=== PATIENT | female | born 1960 | race Caucasian/White ===

== ENCOUNTER → 2018-09-12 | Outpatient (CLI) | payer MEDICARE ==
--- NOTE | 2018-09-12 09:49 | RADIOLOGY REPORT (SQ) ---
EXAM DESCRIPTION: U/S RETROPERITON (RENAL/AORTA) COMPLETED DATE/TIME: 09/12/2018 9:07 am REASON FOR STUDY: AAA W/O RUPTURE (I71.4), CHF (I50.30) I50.30 UNSPECIFIED DIASTOLIC (CONGESTIVE) H EART FAILURE I71.4 ABDOMINAL AORTIC ANEURYSM, WITHOUT RUPTURE COMPARISON: None. TECHNIQUE: Static and dynamic grayscale images acquired of the aorta and stored on PACs. Selected co mary Doppler and spectral images recorded. LIMITATIONS: None. FINDINGS: AORTIC CALIBER MAXIMAL PROXIMAL: 3.2 x 3.3 cm. MID: 2.3 x 2.7 cm. DISTAL: 3.7 x 3.5 cm. This area measures 5.0 cm in length. ILIAC DIAMETER RIGHT: Not visualized secondary to overlying bowel gas. LEFT: Not visualized secondary to overlying bowel gas. OTHER: Scattered aortic atherosclerosis. IMPRESSION: Dilation of the infrarenal abdominal aorta measuring up to 3.7 cm. See recommendations as below. COMMENT: Aortic aneurysm imaging followup: 3.5-3.9 cm Every 12 months *Based upon the Society for Vascular Surgery Guidelines: J Vasc Surg. 2009 Oct;50(4 Suppl):S2-49 *For aortas of maximum diameter of 2.6-2.9 cm meeting the criteria for AAA (?1.5 x proximal normal se gment) TECHNICAL DOCUMENTATION: JOB ID: [id number] [employer]- All Rights Reserved Reading location - IP/workstation name: [email or web address]
--- NOTE | 2018-09-12 21:06 | XCELERA REPORT ---
[address] [address] Transthoracic Echocardiogram Report Name: NICO AVILA Age: 58 yrs Gender: Female : 1960 Patient Status: Outpatient Patient Location: RAD Study Date: 09/12/2018 10:05 AM Height: 64 in Weight: 155 lb BSA: 1.8 m2 Procedure: A complete two-dimensional transthoracic echocardiogram was performed (2D, M-mode, spectral and color flow Doppler). The study was technically difficult with many images being suboptimal in quality. Reason For Study: CHF/AAA Ordering Physician: NIC GOMEZ Performed By: Iliana Amaro Interpretation Summary The left ventricular ejection fraction is normal. LV diastolic function could not be adequately assessed. There is mild concentric left ventricular hypertrophy. The left ventricle is grossly normal size. Wall motion cannot be accurately commented on, but no definite regional wall motion abnormalities noted. The right ventricular systolic function is normal. The left atrial size is normal. The right atrium is normal in size There is a trace amount of mitral regurgitation There is no mitral valve stenosis. No aortic regurgitation is present. There is no aortic valve stenosis There is a trace or physiologic amount of tricuspid regurgitation Tricuspid regurgitation jet envelope not well defined to measure RV systolic pressure accurately. The aortic root is not well visualized. The inferior vena cava appeared normal and decreased > 50% with respiration (RAP 5-10 mmHg) There is no pericardial effusion. MMode/2D Measurements & Calculations RVDd: 3.2 cm LVIDd: 4.4 cm FS: 29.9 % Ao root diam: 3.1 cm IVSd: 1.0 cm LVIDs: 3.1 cm EDV(Teich): 89.1 ml Ao root area: 7.4 cm2 LVPWd: 1.3 cm ESV(Teich): 38.1 ml EF(Teich): 57.2 % Doppler Measurements & Calculations MV E max rafa: MV dec slope: Ao V2 max: LV V1 max P.0 cm/sec 266.4 cm/sec2 140.3 cm/sec 6.8 mmHg MV A max rafa: MV dec time: 0.19 secAo max PG: LV V1 max: 63.6 cm/sec 7.9 mmHg 130.1 cm/sec MV E/A: 0.79 PA V2 max: 106.2 cm/sec PA max P.5 mmHg Left Ventricle The left ventricle is grossly normal size. There is mild concentric left ventricular hypertrophy. The left ventricular ejection fraction is normal. LV diastolic function could not be adequately assessed. Wall motion cannot be accurately commented on, but no definite regional wall motion abnormalities noted. Right Ventricle The right ventricle is grossly normal size. There is normal right ventricular wall thickness. The right ventricular systolic function is normal. Atria The right atrium is normal in size. The left atrial size is normal. Interarterial septum not well visualized and not well dopplered. Cannot comment on ASD/PFO presence. Mitral Valve The mitral valve is grossly normal. There is no mitral valve stenosis. There is a trace amount of mitral regurgitation. Aortic Valve The aortic valve is grossly normal. There is no aortic valve stenosis. No aortic regurgitation is present. Tricuspid Valve The tricuspid valve is not well visualized secondary to technical limitations. There is no tricuspid stenosis. There is a trace or physiologic amount of tricuspid regurgitation. Tricuspid regurgitation jet envelope not well defined to measure RV systolic pressure accurately. Pulmonic Valve The pulmonic valve is not well visualized. Great Vessels The aortic root is not well visualized. The inferior vena cava appeared normal and decreased > 50% with respiration (RAP 5-10 mmHg). Effusions There is no pericardial effusion. : NIC GOMEZ > Haydee Jones
== END ==
LOC: RAD 08:23
PROVIDERS: ATTEND Physician Assistant
DX: I50.30 Unspecified diastolic (congestive) heart failure (principal); I71.4 Abdominal aortic aneurysm, without rupture
CPT/HCPCS: 76770; 93306

== ENCOUNTER 2019-01-01 06:02 | Day surgery (SDC) | payer MEDICARE ==
--- NOTE | 2018-12-31 11:29 | EKG REPORT ---
SEVERITY:- BORDERLINE ECG - SINUS RHYTHM BORDERLINE T WAVE ABNORMALITIES : Confirmed by: Isi Wakefield MD 31-Dec-2018 11:27:55
[2018-12-31 11:39] LABS: HEMATOCRIT 40.3 % (36.0-47.0); MEAN CORPUSCULAR HEMOGLOBIN 33.5 pg (27.0-33.4); MEAN CORPUSCULAR HGB CONC 34.7 g/dL (32.0-36.0); MEAN CORPUSCULAR VOLUME 97 fl (80-97); PLATELET COUNT 243 10^3/uL (150-450); RED BLOOD COUNT 4.17 10^6/uL (3.72-5.28); RED CELL DISTRIBUTION WIDTH 14.6 % (11.5-14.0); WHITE BLOOD COUNT 6.9 10^3/uL (4.0-10.5)
[2018-12-31 11:48] LABS: APPEARANCE,URINE CLEAR; BILIRUBIN,URINE NEGATIVE (NEGATIVE); COLOR,URINE YELLOW; GLUCOSE, URINE NEGATIVE (NEGATIVE); KETONES,URINE NEGATIVE (NEGATIVE); LEUKOCYTE ESTERASE,URINE NEGATIVE (NEGATIVE); NITRITE,URINE NEGATIVE (NEGATIVE); PROTEIN,URINE 30 mg/dL (NEGATIVE); URINE SPECIFIC GRAVITY 1.005; UROBILINOGEN,URINE NEGATIVE mg/dL (<2.0)
[2018-12-31 11:55] LABS: INTERNATIONAL RATION (INR) 0.93; PARTIAL THROMBOPLASTIN TIME 31.4 SEC (23.5-35.8); PROTHROMBIN TIME 12.9 SEC (11.4-15.4)
[2018-12-31 12:04] LABS: ANION GAP 7 (5-19); BLOOD UREA NITROGEN 12 mg/dL (7-20); CALCIUM 9.9 mg/dL (8.4-10.2); CARBON DIOXIDE 33 mmol/L (22-30); CHLORIDE 97 mmol/L (98-107); GLUCOSE 111 mg/dL (75-110); POTASSIUM 4.4 mmol/L (3.6-5.0); SODIUM 136.6 mmol/L (137-145)
--- NOTE | 2018-12-31 12:45 | RADIOLOGY REPORT (SQ) ---
EXAM DESCRIPTION: CHEST PA/LATERAL COMPLETED DATE/TIME: 12/31/2018 11:20 am REASON FOR STUDY: PRE-OP COMPARISON: 09/26/2013 TECHNIQUE: AP and lateral views of the chest NUMBER OF VIEWS: 2 LIMITATIONS: None. FINDINGS: LUNGS AND PLEURA: No pneumothorax. No consolidation or pleural effusion. Similar chronic basilar scarring -interstitial markings. MEDIASTINUM AND HILAR STRUCTURES: Stable. HEART AND VASCULAR STRUCTURES: Stable. BONES: No acute findings. HARDWARE: Thoracic intraspinal stimulator. OTHER: No other significant finding. IMPRESSION: NO ACUTE FINDINGS. TECHNICAL DOCUMENTATION: JOB ID: [id number] [place]-72 2010 [employer])- All Rights Reserved Reading location - IP/workstation name: [email or web address]
[~2019-01-01 06:02] MED LIST: CEFAZOLIN 1 GM/D5W RTU 1 GM/50 ML RTUPB IV ONE; CEFAZOLIN 1 GM/D5W RTU 1 GM/50 ML RTUPB IV PRN; LACTATED RINGERS 1000 ML IV PRN; LIDOCAINE 0.5% INJ-PF (5 MG/ML) 50 ML SDV SUBCUT PRN
[2019-01-01] MEDS ORDERED: ALBUTEROL SULFATE 0.083% NEB 2.5 MG/3 ML AMPUL NEB ONE (06:41)
[2019-01-01] MEDS ORDERED: FENTANYL CITRATE INJ/PF 100 MCG/2 ML AMPUL ONE ×3 (07:11→08:51)
[2019-01-01] MEDS ORDERED: KETAMINE HCL INJ 500 MG/10 ML VIAL ONE (07:11)
[2019-01-01] MEDS ORDERED: PROPOFOL INJ 200 MG/20 ML VIAL IV ONE (07:12)
[2019-01-01] MEDS ORDERED: MIDAZOLAM 2 MG/2 ML INJ ONE ×2 (07:12→07:19)
[2019-01-01] MEDS ORDERED: LIDOCAINE 1% INJ-PF (10 MG/ML) 30 ML SDV ONE (07:41)
[2019-01-01] MEDS ORDERED: SODIUM BICARBONATE 4.2% INJ (2.5 MEQ/5 ML) VIAL ONE (07:41)
[2019-01-01] MEDS ORDERED: BUPIVACAINE HCL 0.25% /EPINEPHRINE INJ/PF 30 ML SDV ONE (07:41)
[2019-01-01] MEDS ORDERED: FENTANYL CITRATE INJ/PF 100 MCG/2 ML AMPUL IV PRN ×3 (08:27)
[2019-01-01] MEDS ORDERED: DIPHENHYDRAMINE HCL 50 MG/ML VIAL IV PRN (08:27)
[2019-01-01] MEDS ORDERED: CEFAZOLIN INJ 1 GM VIAL ONE (08:37)
--- NOTE | 2019-01-01 09:09 | OPERATIVE REPORT E ---
Operative Report NAME: NICO AVILA : 1960 AGE: 58Y DATE OF SURGERY: 01/01/2019 ROOM: PREOPERATIVE DIAGNOSIS: Nonfunctioning spinal cord stimulating system noted to the panel electrode implanted on the right side as the patient has a dual system with a battery on the left as well which is functioning fine. POSTOPERATIVE DIAGNOSIS: Nonfunctioning spinal cord stimulating system noted to the panel electrode implanted on the right side as the patient has a dual system with a battery on the left as well which is functioning fine. SURGICAL PROCEDURE: Removal and replacement of spinal cord stimulator battery. SURGEON: JUICE TORRES M.D. ANESTHESIA: MAC. BLOOD LOSS: Minimal. SPECIMENS REMOVED: None. Old battery discarded. COMPLICATIONS: None. INDICATIONS: End-of-life battery. PROCEDURE NOTE: After obtaining informed consent advising the patient of the risks and benefits, including serious neurological injury, bleeding, infection, allergic reaction, and nonfunctioning of the system, damage to the existing system, allergic reaction, and , she was taken to the operating room and placed comfortably in the prone position. MAC anesthesia was administered and monitors were applied. She was then prepped with chlorhexidine with appropriate drying time of 3 minutes. She was then draped in the customary fashion. The surgical site had been marked over the right side. Local anesthetic 1% lidocaine with bicarb was applied using a 27-gauge needle over the existing scar from the prior implant. Bupivacaine was then instilled as well. Sharp and blunt dissection was performed to deliver the pulse generator without difficulty. The capsule was incised slightly to facilitate placement of the new pulse generator. The system was disconnected from the existing leads. The leads were cleaned and connected to the new pulse generator. Impedance connectivity was checked and was all satisfactory. All hex nuts were secured. The wound was then copiously irrigated with Betadine-containing irrigation solution. The battery was placed into the pocket in the same orientation as its prior system. The capsule was then closed with interrupted inverted vertical mattress 2-0 Vicryl. The subcutaneous tissue was then closed with the same using 3-0 Vicryl. The skin was then taped with Dermabond tape and sealed with cement followed by Telfa and Tegaderm. The system was checked with connectivity and it was satisfactory. She was then taken to the PACU for further postoperative care. DICTATING PHYSICIAN: JUICE TORRES M.D. [id number] PHY#: [id number] ID: [id number] JOB#: [id number] ACCT: [id number] cc:JUICE TORRES M.D. >
[2019-01-01] MEDS ORDERED: ONDANSETRON HCL INJ/PF 4 MG/2 ML SDV IV PRN (10:29)
[2019-01-01] MEDS ORDERED: HYDROMORPHONE HCL 2 MG TABLET PO PRN (10:29)
[2019-01-01 11:17] VITALS: BP 153/89
[2019-01-01] MEDS ORDERED: ONDANSETRON HCL INJ/PF 4 MG/2 ML SDV ONE (13:07)
== END 2019-01-01 10:40 | disposition home or self-care (01) ==
LOC: OROUT 06:02
PROVIDERS: ATTEND Pain Medicine Interventional Pain Medicine
DX: G89.4 Chronic pain syndrome (principal); M54.17 Radiculopathy, lumbosacral region; M96.1 Postlaminectomy syndrome, not elsewhere classified; F17.210 Nicotine dependence, cigarettes, uncomplicated; Z79.899 Other long term (current) drug therapy; G56.00 Carpal tunnel syndrome, unspecified upper limb; F45.42 Pain disorder with related psychological factors; M60.89 Other myositis, multiple sites
CPT/HCPCS: 62361; 93005; 36415; 85027; 85610; 85730; 80048; 81001; 71046; 93010; 00300; J2250; J3490 ×4; J0690 ×2; J3010; J2405; J2704; A9270; 300

== ENCOUNTER 2019-10-03 21:13 | Inpatient (IN) | payer MEDICARE ==
[2019-10-03 22:43] LABS: INTERNATIONAL RATION (INR) 0.97; PROTHROMBIN TIME 12.9 SEC (11.4-15.4)
[2019-10-03 22:44] LABS: ABSOLUTE BASOPHILS # (AUTO) 0.1 10^3/uL (0.0-0.2); ABSOLUTE EOSINOPHILS # (AUTO) 0.1 10^3/uL (0.0-0.6); ABSOLUTE LYMPHOCYTES (AUTO) 1.8 10^3/uL (0.5-4.7); ABSOLUTE MONOCYTES (AUTO) 1.3 10^3/uL (0.1-1.4); ABSOLUTE NEUT (AUTO) 5.4 10^3/uL (1.7-8.2); EOSINOPHILS % (AUTO) 1.6 % (0-6); HEMATOCRIT 38.7 % (36.0-47.0); HEMOGLOBIN 13.6 g/dL (12.0-15.5); LYMPHOCYTES % (AUTO) 20.6 % (13-45); MEAN CORPUSCULAR HEMOGLOBIN 34.3 pg (27.0-33.4); MEAN CORPUSCULAR VOLUME 98 fl (80-97); MONOCYTES % (AUTO) 15.2 % (3-13); PLATELET COUNT 314 10^3/uL (150-450); RED BLOOD COUNT 3.96 10^6/uL (3.72-5.28); RED CELL DISTRIBUTION WIDTH 13.2 % (11.5-14.0); SEGMENTED NEUTROPHILS % (AUTO) 61.6 % (42-78); TOTAL CELLS COUNTED % (AUTO) 100 %; WHITE BLOOD COUNT 8.8 10^3/uL (4.0-10.5)
[2019-10-03 22:49] LABS: ALBUMIN 4.3 g/dL (3.5-5.0); ALKALINE PHOSPHATASE 118 U/L (38-126); ANION GAP 13 (5-19); ASPARTATE AMINO TRANSFERASE 73 U/L (14-36); BILIRUBIN,DIRECT 0.4 mg/dL (0.0-0.4); BILIRUBIN,TOTAL 0.9 mg/dL (0.2-1.3); BLOOD UREA NITROGEN 23 mg/dL (7-20); CALCIUM 9.7 mg/dL (8.4-10.2); CARBON DIOXIDE 27 mmol/L (22-30); CHLORIDE 86 mmol/L (98-107); GLUCOSE 88 mg/dL (75-110); POTASSIUM 4.2 mmol/L (3.6-5.0); TOTAL PROTEIN 7.8 g/dL (6.3-8.2)
--- NOTE | 2019-10-03 22:53 | ER Document Report ---
ED General - General Chief Complaint: Shortness Of Breath Stated Complaint: SHORTNESS OF BREATH,COUGH,PNEUMONIA Time Seen by Provider: 10/03/19 22:51 Primary Care Provider: NIC KING PA-C [Primary Care Provider] - Follow up as needed Notes: 59 year old white female with cc of 1 week history of dyspnea/SOB, productive clear phlegm cough and congestion. Patient was seen by clinic today and placed on Augmentin and Zpak but by 1800 began to have tachypnea and increased dyspnea. She was told she had braxton bibasilar pneumonia with left serous OM. She called her daughter EMS worker who advised "she can come to ED if she wanted to get IV medicines.". By time of arrival @ 2124, pt had 32 BPM with sats 91 and by 2200 had 20 BPM with 94 sats TRAVEL OUTSIDE OF THE [place] IN LAST 30 DAYS: No - Related Data Allergies/Adverse Reactions: adhesive tape [Adhesive Tape] Allergy (Verified 09/26/13 10:48) Past Medical History - Social History Smoking Status: Current Every Day Smoker Family History: Reviewed & Not Pertinent Patient has suicidal ideation: No Patient has homicidal ideation: No - Past Medical History Cardiac Medical History: Reports: Hx Hypertension Denies: Hx Coronary Artery Disease, Hx Heart Attack Pulmonary Medical History: Denies: Hx Asthma, Hx Bronchitis, Hx COPD, Hx Pneumonia Neurological Medical History: Denies: Hx Cerebrovascular Accident, Hx Seizures Musculoskeletal Medical History: Denies Hx Arthritis - Immunizations Hx Diphtheria, Pertussis, Tetanus Vaccination: No Physical Exam - Vital signs Vitals: Pulse Ox 94 10/03/19 21:17 Interpretation: Tachycardic, Hypoxic, Tachypneic - General General appearance: Alert - HEENT Head: Normocephalic Eyes: Normal Conjunctiva: Normal Cornea: Normal Extraocular movements intact: Yes Eyelashes: Normal Pupils: PERRL Tympanic membrane: Serous effusion - L>R Sinus: Normal Nasal: Clear rhinorrhea Mouth/Lips: Normal Mucous membranes: Normal Pharynx: Normal Neck: Normal - Respiratory Respiratory status: No respiratory distress Chest status: Nontender Breath sounds: Nonproductive cough, Wheezing Chest palpation: Normal - Cardiovascular Rhythm: Regular Heart sounds: Normal auscultation Murmur: No Friction rub: No Oleg's crunch: No - Abdominal Inspection: Normal Distension: No distension Bowel sounds: Normal Tenderness: Nontender Organomegaly: No organomegaly - Back Back: Normal - Extremities General upper extremity: Normal inspection General lower extremity: Normal inspection - Neurological Neuro grossly intact: Yes Cognition: Normal Orientation: AAOx4 [place] Coma Scale Eye Opening: Spontaneous Nelly Coma Scale Verbal: Oriented [place] Coma Scale Motor: Obeys Commands [place] Coma Scale Total: 15 Speech: Normal Cranial nerves: Normal Cerebellar coordination: Normal Motor strength normal: LUE, RUE, LLE, RLE - Psychological Associated symptoms: Normal affect - Skin Skin Temperature: Warm Skin Moisture: Dry Course - Vital Signs Vital signs: Temp Pulse Resp BP Pulse Ox 98.6 F 13 135/83 H 98 10/03/19 21:25 10/04/19 00:31 10/04/19 00:31 10/04/19 00:31 - Laboratory Result Diagrams: 10/03/19 21:30 10/03/19 21:30 Laboratory results interpreted by me: 10/03/19 10/03/19 21:30 21:30 MCV 98 H MCH 34.3 H [place] % (Auto) 15.2 H Sodium 125.8 L Chloride 86 L BUN 23 H Creatinine 1.77 H Est GFR ( Amer) 36 L Est GFR (MDRD) Non-Af 29 L AST 73 H ALT 43 H - Diagnostic Test Radiology reviewed: Reports reviewed Radiology results interpreted by me: 10/03/19 23:20 COPD on chest x-ray with stim wires on thorax and lungs are clear per radiology Critical Care Note - Critical Care Note Total time excluding time spent on procedures (mins): 90 Discharge - Discharge Clinical Impression: COPD with exacerbation, Bronchitis, Hyponatremia Condition: Good Disposition: HOME, SELF-CARE Additional Instructions: Follow-up with personal doctor return to ER as needed take medicines as directed encourage fluids Prescriptions: Codeine Phosphate/Guaifenesin [Codeine-Guaifen 10-100 mg/5 ml] 5 ml PO TID #120 ml Dexamethasone [Decadron 4 Mg Tablet] 4 mg PO BID #8 tablet Levofloxacin [Levaquin 500 mg Tablet] 500 mg PO DAILY #10 tablet Referrals: NIC KING PA-C [Primary Care Provider] - Follow up as needed
[2019-10-03] MEDS ORDERED: DEXAMETHASONE SOD PHOS INJ 10 MG/1 ML VIAL IV ONE (23:03)
--- NOTE | 2019-10-03 23:05 | RADIOLOGY REPORT (SQ) ---
EXAM DESCRIPTION: XR CHEST 1 VIEW COMPLETED DATE/TME: 10/03/2019 22:21 CLINICAL HISTORY: 59 years, Female, SOB COMPARISON: 12/31/2018 chest NUMBER OF VIEWS: 1 TECHNIQUE: Portable chest LIMITATIONS: None. FINDINGS: Heart size is stable. Osteopenia. COPD. Stimulating wires project over the thoracic spine. No pneumothorax. Lungs are clear IMPRESSION: COPD. No acute cardiopulmonary process copyright 2010 [employer]- All Rights Reserved
[2019-10-03] MEDS ORDERED: NORMAL SALINE 1000 ML 1,000 ML IV ONE (23:22)
[2019-10-04] MEDS ORDERED: HYDROMORPHONE HCL INJ/PF 2 MG/ML AMPULE IV ONE ×2 (01:03→15:12)
[2019-10-04 01:26] LABS: A TYPE INFLUENZA AG NEGATIVE (NEGATIVE); B INFLUENZA AG NEGATIVE (NEGATIVE)
--- NOTE | 2019-10-04 03:45 | RADIOLOGY REPORT (SQ) ---
CT ANGIOGRAM CHEST WITH IV CONTRAST: 10/04/2019 2:38 AM CDT HISTORY: 59-year old patient with dyspnea. TECHNIQUE: Postcontrast CT through the chest was performed per protocol for CT angiography. 3D Multiplanar reformations were performed at the workstation. Reconstructed sagittal and coronal images were also obtained through the chest. This exam was performed according to our departmental dose-optimization program, which includes automated exposure control, adjustment of the mA and/or KV according to the patient's size and/or use of iterative reconstruction technique. COMPARISON: None available FINDINGS: The heart size is within normal limits of size. No significant mediastinal, supraclavicular, or axillary lymphadenopathy is seen. The thoracic aorta is within normal limits of size. The main pulmonary artery is at the upper limits of normal in size. No filling defects are seen within the pulmonary arteries to suggest a pulmonary artery embolism. The thyroid gland is unremarkable. The central tracheobronchial tree is patent. There is no evidence of a focal consolidative airspace opacity. Moderate centrilobular emphysematous changes are present. There is no evidence of pleural effusions or a pneumothorax. The bones demonstrate no suspicious lytic or blastic lesion. There is a noncalcified nodule at the right lower lobe measuring up to 6 mm on image 85 of 115. A noncalcified nodule seen at the lingula measuring up to 6 mm on image 87 of 115. The visualized portions of the upper abdomen appear grossly unremarkable. There is a spinal stimulator lead tip seen at the mid thoracic spine. IMPRESSION: No acute airspace opacities are seen. No filling defect is seen to suggest a pulmonary artery embolism. There is 6 mm noncalcified nodules present which will need interval follow-up in 6-12 months.
[2019-10-04] MEDS ORDERED: ONDANSETRON HCL INJ/PF 4 MG/2 ML SDV IV PRN (05:17)
[2019-10-04] MEDS ORDERED: MAG HYDROX/AL HYDROX/SIMETH SUSP 30 ML UDCUP PO PRN (05:17)
[2019-10-04] MEDS ORDERED: MAGNESIUM HYDROXIDE SUSP 30 ML UDCUP PO PRN (05:17)
[2019-10-04] MEDS ORDERED: GUAIFENESIN SYRP 200 MG/10 ML UDC PO PRN (05:24)
[2019-10-04] MEDS ORDERED: NICOTINE 21 MG/24 HR PATCH.TD24 TD PRN (05:24)
[2019-10-04] MEDS ORDERED: ACETAMINOPHEN 325 MG TABLET PO PRN (05:24)
[2019-10-04] MEDS ORDERED: RINGERS SOLUTION,LACTATED 1,000 ML IV PRN (05:34)
[2019-10-04] MEDS ORDERED: ONDANSETRON 4 MG TAB.RAPDIS PO PRN (06:06)
[2019-10-04] MEDS: HEPARIN SOD (PORCINE) 5,000 UNIT/ML 1 ML VIAL SUBCUT SCH ×3 (06:23→22:35)
[2019-10-04] MEDS: METHYLPREDNISOLONE INJ 40 MG/1 ML SDV IV SCH ×3 (06:23→18:04)
--- NOTE | 2019-10-04 07:12 | PDOC H&P ---
History of Present Illness Admission Date/PCP: 10/04/2019 04:39 NIC KING PA-C Patient complains of: Dyspnea History of Present Illness: NICO AVILA is a 59 year old female who presented to the emergency room with a one-week history of dyspnea. She admits developing dyspnea with upper respiratory infection symptoms of a cough productive of clear phlegm and chest congestion 1 week ago with a gradual worsening until 2 days ago when her dyspnea became severe. She was seen by her primary care provider on 10/03/2019 and was told she had bilateral pneumonia and a serous otitis on the left. She was subsequently treated with antibiotics utilizing Augmentin and azithromycin. After the first dose of medicine she also began having some diarrhea and her respiratory status did not seem to be improving, in fact it seemed to be worsening with increasing tachypnea and decreasing O2 sats. She subsequently came to the emergency room for further evaluation and treatment. She denies prior similar episodes. She denies other associated or accompanying signs and symptoms. In the emergency room she was found to have an unremarkable evaluation however her oxygen saturation dropped into the mid to low 80s with exertion and she was therefore admitted to the hospital for further evaluation and treatment. Past Medical History Cardiac Medical History: Reports: Hyperlipidema, Hypertension Denies: Atrial Fibrillation, Congestive Heart Failure, Coronary Artery Disease, DVT, Myocardial Infarction, Pulmonary Embolism Pulmonary Medical History: Denies: Asthma, Bronchitis, Chronic Obstructive Pulmonary Disease (COPD), Pneumonia, Respiratory Failure EENT Medical History: Denies: Cataracts, Ears - Hearing aids Neurological Medical History: Denies: Hemorrhagic CVA, Ischemic CVA, Seizures Endocrine Medical History: Denies: Diabetes Mellitus Type 1, Diabetes Mellitus Type 2, Hyperthyroidism, Hypothyroidism, Obesity Renal/ Medical History: Denies: Chronic Kidney Disease, Nephrolithiasis Malignancy Medical History: Reports: None GI Medical History: Denies: Cirrhosis, Crohn's Disease, Hepatitis, Ulcerative Colitis Musculoskeltal Medical History: Reports: Arthritis - Chronic back pain, Other - Chronic back pain syndrome Denies: Gout Skin Medical History: Denies: Eczema, Psoriasis Psychiatric Medical History: Reports: General Anxiety Disorder, Tobacco Dependency Denies: Alcohol Dependency, Substance Abuse Traumatic Medical History: Reports: None Hematology: Denies: Anemia, Bleeding Tendencies Infectious Medical History: Reports: None Past Surgical History Past Surgical History: Reports: Orthopedic Surgery - Back surgeries, bilateral carpal tunnel surgeries, pain stimulator surgery Social History Information Source: Patient Lives with: Family Smoking Status: Current Every Day Smoker Electronic Cigarette use?: No Frequency of Alcohol Use: None Hx Recreational Drug Use: No Drugs: None Hx Prescription Drug Abuse: No - Advance Directive Resuscitation Status: Full Code Surrogate healthcare decision maker:: Luz Maria Chase Family History Family History: CAD, Hypertension, Malignancy. denies: DM Parental Family History Reviewed: Yes Children Family History Reviewed: No Sibling(s) Family History Reviewed.: Yes Medication/Allergy Home Medications: Alprazolam [Xanax 0.5 mg Tablet] 0.5 mg PO PRN PRN 09/26/13 Atorvastatin Calcium [Lipitor 20 mg Tablet] 10 mg PO DAILY 09/26/13 Lisinopril 10 mg PO DAILY 09/26/13 Ondansetron [Zofran Odt 4 mg Tablet] 1 - 2 tab PO Q4H PRN #15 tab.rapdis 11/02/13 Furosemide [Lasix] 80 mg PO DAILY 12/27/18 Hydromorphone HCl [Dilaudid] 8 mg PO BID 12/27/18 Oxycodone HCl [Oxycontin Sr 10 mg Tablet] 10 mg PO TID 12/27/18 Vitamin B Complex 1 each PO DAILY 12/27/18 Codeine Phosphate/Guaifenesin [Codeine-Guaifen 10-100 mg/5 ml] 5 ml PO TID #120 ml 10/04/19 Dexamethasone [Decadron 4 Mg Tablet] 4 mg PO BID #8 tablet 10/04/19 Levofloxacin [Levaquin 500 mg Tablet] 500 mg PO DAILY #10 tablet 10/04/19 Allergies/Adverse Reactions: adhesive tape [Adhesive Tape] Allergy (Verified 09/26/13 10:48) Review of Systems Constitutional: ABSENT: chills, fever(s) Eyes: ABSENT: visual disturbances, other - Eye pain Ears: ABSENT: hearing changes, other - Ear pain Cardiovascular: PRESENT: palpitations. ABSENT: chest pain Respiratory: PRESENT: as per HPI, cough, dyspnea Gastrointestinal: PRESENT: as per HPI, diarrhea - After first dose of new oral antibiotics, nausea - After first dose of new oral antibiotics. ABSENT: abdominal pain, constipation, vomiting Genitourinary: ABSENT: difficulty urinating, dysuria, hematuria Musculoskeletal: PRESENT: back pain - Chronic. ABSENT: muscle weakness Integumentary: ABSENT: pruritus, rash Neurological: ABSENT: confusion, convulsions, focal weakness, memory loss, syncope Psychiatric: ABSENT: anxiety, depression Endocrine: ABSENT: cold intolerance, heat intolerance, polydipsia, polyphagia, polyuria Hematologic/Lymphatic: ABSENT: easy bleeding, easy bruising Allergic/Immunologic: ABSENT: seasonal rhinorrhea Physical Exam Vital Signs: Temp Pulse Resp BP Pulse Ox 98.2 F 14 152/74 H 96 10/04/19 01:01 10/04/19 02:39 10/04/19 02:39 10/04/19 02:39 Intake & Output 10/02/19 10/03/19 10/04/19 23:59 23:59 23:59 Weight 63.7 kg General appearance: PRESENT: no acute distress, cooperative Head exam: PRESENT: atraumatic, normocephalic Eye exam: ABSENT: conjunctival injection, scleral icterus Ear exam: PRESENT: normal external ear exam. ABSENT: bleeding, drainage Mouth exam: PRESENT: dry mucosa. ABSENT: neck supple Neck exam: ABSENT: full ROM, thyromegaly, tracheal deviation Respiratory exam: PRESENT: crackles, prolonged expiratory phas, symmetrical, t achypnea, wheezes Cardiovascular exam: PRESENT: RRR. ABSENT: clicks, gallop, rubs Pulses: PRESENT: normal radial pulses, normal dorsalis pedis pul Vascular exam: PRESENT: normal capillary refill. ABSENT: pallor Breast: ABSENT: Normal, Tenderness GI/Abdominal exam: PRESENT: normal bowel sounds, soft Rectal exam: PRESENT: deferred Extremities exam: ABSENT: joint swelling, pedal edema Musculoskeletal exam: ABSENT: deformity, dislocation Neurological exam: PRESENT: alert, oriented to person, oriented to place, oriented to time, oriented to situation, CN II-XII grossly intact. ABSENT: motor sensory deficit Psychiatric exam: PRESENT: appropriate affect, normal mood Skin exam: PRESENT: dry, pallor. ABSENT: jaundice, rash, urticaria Results Laboratory Results: 10/03/19 21:30 10/03/19 21:30 10/03/19 10/03/19 10/03/19 21:30 21:30 21:30 WBC 8.8 RBC 3.96 Hgb 13.6 Hct 38.7 MCV 98 H MCH 34.3 H MCHC 35.0 RDW 13.2 Plt Count 314 Seg Neutrophils % 61.6 Sodium 125.8 L Potassium 4.2 Chloride 86 L Carbon Dioxide 27 Anion Gap 13 BUN 23 H Creatinine 1.77 H Est GFR ( Amer) 36 L Glucose 88 Lactic Acid 1.0 Calcium 9.7 Total Bilirubin 0.9 AST 73 H Alkaline Phosphatase 118 Total Protein 7.8 Albumin 4.3 10/03/19 21:30 Troponin I 0.013 Impressions: Chest X-Ray 10/03/19 22:21 IMPRESSION: COPD. No acute cardiopulmonary process copyright 2011 [employer]- All Rights Reserved Chest/Abdomen CTA 10/04/19 01:44 IMPRESSION: No acute airspace opacities are seen. No filling defect is seen to suggest a pulmonary artery embolism. There is 6 mm noncalcified nodules present which will need interval follow-up in 6-12 months. Assessment and Plan - Diagnosis (1) Acute exacerbation of chronic obstructive airways disease Is this a current diagnosis for this admission?: Yes (2) Acute respiratory failure with hypoxia Is this a current diagnosis for this admission?: Yes (3) Acute kidney injury (nontraumatic) Is this a current diagnosis for this admission?: Yes (4) Hypertension Is this a current diagnosis for this admission?: Yes (5) Hyponatremia Is this a current diagnosis for this admission?: Yes (6) Hyperlipidemia, unspecified Qualifiers: Hyperlipidemia type: unspecified Qualified Code(s): E78.5 - Hyperlipidemia, unspecified Is this a current diagnosis for this admission?: Yes (7) Tobacco use disorder, severe, dependence Is this a current diagnosis for this admission?: Yes - Plan Summary Summary: Patient will be admitted to the medical floor where she will receive routine supportive and symptomatic cares. She will be tested for coronavirus Covid-19. She will be treated with aggressive pulmonary toilet utilizing Xopenex, Pulmicort and Atrovent delivered via nebulizer therapy. She will receive intravenous steroids to complete a short burst dosing. She will receive supplem ental oxygen as required to maintain adequate oxygen saturation of 90 to 94%. She will receive IV fluids and her renal functions will be monitored closely. She will be continued on her usual medications as appropriate. CBCs metabolic profiles and magnesium levels be obtained as needed. A nicotine replacement patch will be provided for the patient's use, if desired. Patient will be maintained on a cardiac diet. A lipid profile and a TSH will be obtained. - Time Time Spent with patient: 15-24 minutes Smoking Cessation Education: 3 to 10 minutes Medications reviewed and adjusted accordingly: Yes Anticipated discharge: Home with Homehealth - Inpatient Certification Based on my medical assessment, after consideration of the patient's comorbidities, presenting symptoms, or acuity I expect that the services needed warrant INPATIENT care.: Yes I certify that my determination is in accordance with my understanding of [facility]'s requirements for reasonable and necessary INPATIENT services [42 CFR 412.3e].: Yes Medical Necessity: Failure to Improve With Outpatient Therapy, Need Close M onitoring Due to Risk of Patient Decompensation, Need for Nebulizer Therapy and Monitoring of Response, Risk of Complication if Not Cared For in Hospital
[2019-10-04] MEDS: LEVALBUTEROL HCL NEB 1.25 MG/3 ML AMPUL NEB SCH ×2 (08:47→16:48)
[2019-10-04] MEDS: BUDESONIDE NEB 0.5 MG/2 ML AMPUL NEB SCH ×2 (08:47→20:01)
[2019-10-04] MEDS: IPRATROPIUM BROMIDE 0.02% NEB 0.5 MG/2.5 ML AMPUL NEB SCH ×2 (08:47→16:48)
[2019-10-04] MEDS: DOCUSATE SODIUM 100 MG CAPSULE PO SCH ×2 (09:43→17:05)
[2019-10-04] MEDS: FAMOTIDINE 20 MG TABLET PO SCH ×2 (09:52→22:35)
[2019-10-04] MEDS: VITAMIN B COMPLEX TABLET PO SCH (09:52)
[2019-10-04] MEDS: LISINOPRIL 10 MG TABLET PO SCH (09:52)
[2019-10-04] MEDS: FUROSEMIDE 80 MG TABLET PO SCH (09:52)
[2019-10-04] MEDS ORDERED: HYDROMORPHONE HCL 2 MG TABLET PO SCH ×2 (10:00→18:00)
[2019-10-04] MEDS ORDERED: OXYCODONE HCL SR 10 MG TABLET PO SCH ×2 (14:00→18:00)
[2019-10-04] MEDS: LEVALBUTEROL HCL NEB 0.63 MG/3 ML AMPUL NEB PRN ×2 (14:53→20:01)
[2019-10-04] MEDS ORDERED: TEMAZEPAM 15 MG CAPSULE PO PRN (15:20)
[2019-10-04] MEDS ORDERED: LORAZEPAM 1 MG TABLET PO PRN (15:21)
--- NOTE | 2019-10-04 15:25 | PDOC PROGRESS REPORT ---
Subjective Progress Note for:: 10/04/19 Subjective:: Patient is extremely anxious. She in fact is tearful due to her anxiety. She is very upset as her chronic pain management schedule is not being followed in the hospital. She is also upset that a cardiac diet was ordered and typically she is noncompliant with a cardiac diet. She reports that she has eaten very little since she has been here. Reason For Visit: ACUTE EXACERBATION OF CHRONIC ONSTRUCTIVE PULMONAR Physical Exam Vital Signs: Temp Pulse Resp BP Pulse Ox 98.2 F 86 16 136/73 H 93 10/04/19 10:50 10/04/19 14:55 10/04/19 14:55 10/04/19 10:50 10/04/19 14:55 Intake & Output 10/03/19 10/04/19 10/05/19 06:59 06:59 06:59 Intake Total 1000 240 Balance 1000 240 Weight 63.7 kg 66.6 kg General appearance: PRESENT: cooperative, mild distress, well-developed Exam: Patient is resting in bed on 2 L nasal cannula Head exam: PRESENT: atraumatic, normocephalic Respiratory exam: PRESENT: clear to auscultation braxton, symmetrical. ABSENT: tachypnea, wheezes Cardiovascular exam: PRESENT: RRR, +S1, +S2 GI/Abdominal exam: PRESENT: normal bowel sounds, soft. ABSENT: tenderness Rectal exam: PRESENT: deferred Gentrourinary exam: ABSENT: indwelling catheter Neurological exam: PRESENT: alert, awake, oriented to person, oriented to place, oriented to time, oriented to situation, CN II-XII grossly intact. ABSENT: altered Psychiatric exam: PRESENT: anxious - Extremely anxious, other - Tearful. ABSENT: agitated Focused psych exam: ABSENT: delusional, restlessness Skin exam: PRESENT: dry, normal color, warm. ABSENT: rash Results Laboratory Results: 10/03/19 21:30 10/03/19 21:30 10/03/19 10/03/19 10/03/19 21:30 21:30 21:30 WBC 8.8 RBC 3.96 Hgb 13.6 Hct 38.7 MCV 98 H MCH 34.3 H MCHC 35.0 RDW 13.2 Plt Count 314 Seg Neutrophils % 61.6 Sodium 125.8 L Potassium 4.2 Chloride 86 L Carbon Dioxide 27 Anion Gap 13 BUN 23 H Creatinine 1.77 H Est GFR ( Amer) 36 L Glucose 88 Lactic Acid 1.0 Calcium 9.7 Total Bilirubin 0.9 AST 73 H Alkaline Phosphatase 118 Total Protein 7.8 Albumin 4.3 10/04/19 10/04/19 05:04 07:46 WBC RBC Hgb Hct MCV MCH MCHC RDW Plt Count Seg Neutrophils % Sodium Potassium Chloride Carbon Dioxide Anion Gap BUN Creatinine Est GFR ( Amer) Glucose Lactic Acid 0.9 0.8 Calcium Total Bilirubin AST Alkaline Phosphatase Total Protein Albumin 10/03/19 21:30 Troponin I 0.013 Impressions: Chest X-Ray 10/03/19 22:21 IMPRESSION: COPD. No acute cardiopulmonary process copyright 2011 [employer]- All Rights Reserved Chest/Abdomen CTA 10/04/19 01:44 IMPRESSION: No acute airspace opacities are seen. No filling defect is seen to suggest a pulmonary artery embolism. There is 6 mm noncalcified nodules present which will need interval follow-up in 6-12 months. Assessment and Plan - Diagnosis (1) Acute exacerbation of chronic obstructive airways disease Is this a current diagnosis for this admission?: Yes Plan: 10/04/2019 Scheduled and as needed nebulizers. Including budesonide. No antibiotics at this time as suspicion of infection is low. (2) Acute respiratory failure with hypoxia Is this a current diagnosis for this admission?: Yes Plan: 10/04/2019 Due to exacerbation of COPD. Treatment plan as above. Taper oxygen as tolerated to room air. We are ruling out rhinovirus (3) Acute kidney injury (nontraumatic) Is this a current diagnosis for this admission?: Yes Plan: 10/04/2019 The patient is on 80 mg of Lasix, her intake has been poor lately and she is on an JOYCELYN inhibitor. These are all potential reasons. We will continue to monitor the renal function and continue IV fluids. (4) Hypertension Qualifiers: Hypertension type: essential hypertension Qualified Code(s): I10 - Essential (primary) hypertension Is this a current diagnosis for this admission?: Yes Plan: 10/04/2019 The patient has a history of hypertension. She is very noncompliant with dietary restrictions. She is on furosemide and lisinopril and with her acute kidney injury we are going to hold those temporarily. She may benefit from beta-blockade as well. We will continue to monitor vital signs in relation to renal function as well as blood pressure and pulse. Adjust medications accordingly. (5) Hyponatremia Is this a current diagnosis for this admission?: Yes Plan: 10/04/2019 As she has had minimal hyponatremia in the past but not as low as this. It could be the diuretics. He could leave the leg pulmonary issues. We will administer some IV fluid and follow the sodium levels. (6) Hyperlipidemia, unspecified Qualifiers: Hyperlipidemia type: unspecified Qualified Code(s): E78.5 - Hyperlipidemia, unspecified Is this a current diagnosis for this admission?: Yes Plan: 10/04/2019 Currently on statin therapy. LDL is 100. Total cholesterol is 170. Patient is very noncompliant with her diet. Continue statin therapy. (7) Tobacco use disorder, severe, dependence Is this a current diagnosis for this admission?: Yes Plan: 10/04/2019 We will encourage cessation. The patient acknowledges the increased risk especially with underlying hypertension and she did state that they are following an abdominal aortic aneurysm as well. (8) Anxiety Is this a current diagnosis for this admission?: Yes Plan: 10/04/2019 The patient has severe anxiety. She in fact became tearful just at the thought of being in the hospital. I will institute trials of temazepam at night and alprazolam during the day as opposed to the Xanax that she usually takes. I explained this is primarily due to a longer half-life. I will encourage use of an SSRI to help with her chronic anxiety as well. - Plan Summary Summary: Patient will be admitted to the medical floor where she will receive routine supportive and symptomatic cares. She will be tested for coronavirus Covid-19. She will be treated with aggressive pulmonary toilet utilizing Xopenex, Pulmicort and Atrovent delivered via nebulizer therapy. She will receive intravenous steroids to complete a short burst dosing. She will receive supplemental oxygen as required to maintain adequate oxygen saturation of 90 to 94%. She will receive IV fluids and her renal functions will be monitored closely. She will be continued on her usual medications as appropriate. CBCs metabolic profiles and magnesium levels be obtained as needed. A nicotine replacement patch will be provided for the patient's use, if desired. Patient will be maintained on a cardiac diet. A lipid profile and a TSH will be o btained. - Time Time Spent with patient: 15-24 minutes Medications reviewed and adjusted accordingly: Yes Anticipated discharge: Home
[2019-10-04] MEDS: ATORVASTATIN CALCIUM 20 MG TABLET PO SCH ×2 (20:42→22:26)
[2019-10-04] MEDS: NORMAL SALINE 1000 ML 1,000 ML IV PRN (20:48)
[2019-10-04] MEDS: OXYCODONE HCL SR 10 MG TABLET PO SCH (20:51)
[2019-10-05] MEDS: LEVALBUTEROL HCL NEB 1.25 MG/3 ML AMPUL NEB SCH ×4 (00:21→20:20)
[2019-10-05] MEDS: IPRATROPIUM BROMIDE 0.02% NEB 0.5 MG/2.5 ML AMPUL NEB SCH ×4 (00:21→20:20)
[2019-10-05] MEDS ORDERED: HYDROMORPHONE HCL INJ/PF 2 MG/ML AMPULE IV ONE (01:30)
[2019-10-05] MEDS: HEPARIN SOD (PORCINE) 5,000 UNIT/ML 1 ML VIAL SUBCUT SCH ×3 (05:50→21:22)
[2019-10-05] MEDS: OXYCODONE HCL SR 10 MG TABLET PO SCH ×3 (05:51→19:45)
[2019-10-05 06:23] LABS: HEMATOCRIT 32.9 % (36.0-47.0); HEMOGLOBIN 11.7 g/dL (12.0-15.5); MEAN CORPUSCULAR HEMOGLOBIN 34.6 pg (27.0-33.4); MEAN CORPUSCULAR HGB CONC 35.5 g/dL (32.0-36.0); MEAN CORPUSCULAR VOLUME 98 fl (80-97); PLATELET COUNT 248 10^3/uL (150-450); RED BLOOD COUNT 3.37 10^6/uL (3.72-5.28); RED CELL DISTRIBUTION WIDTH 13.5 % (11.5-14.0); WHITE BLOOD COUNT 11.5 10^3/uL (4.0-10.5)
[2019-10-05 06:43] LABS: ANION GAP 11 (5-19); BLOOD UREA NITROGEN 33 mg/dL (7-20); CALCIUM 9.1 mg/dL (8.4-10.2); CARBON DIOXIDE 21 mmol/L (22-30); CHLORIDE 95 mmol/L (98-107); CHOLESTEROL 172.65 mg/dL (0-200); GLUCOSE 112 mg/dL (75-110); POTASSIUM 4.3 mmol/L (3.6-5.0); TRIGLYCERIDES 71 mg/dL (<150)
[2019-10-05 06:54] LABS: DIRECT LDL 100 mg/dL (<100)
[2019-10-05] MEDS ORDERED: LEVALBUTEROL HCL NEB 0.63 MG/3 ML AMPUL NEB PRN (08:16)
[2019-10-05] MEDS: BUDESONIDE NEB 0.5 MG/2 ML AMPUL NEB SCH ×3 (08:22→20:20)
[2019-10-05] MEDS: VITAMIN B COMPLEX TABLET PO SCH (09:53)
[2019-10-05] MEDS: HYDROMORPHONE HCL 2 MG TABLET PO SCH ×2 (09:53→16:12)
[2019-10-05] MEDS: LISINOPRIL 10 MG TABLET PO SCH (09:53)
[2019-10-05] MEDS: DOCUSATE SODIUM 100 MG CAPSULE PO SCH ×2 (09:53→17:47)
[2019-10-05] MEDS: FLUTICASONE/UMECLIDIN/VILANTER 100-62.5-25 MCG/DOSE IH SCH (09:53)
[2019-10-05] MEDS: NORMAL SALINE 1000 ML 1,000 ML IV PRN ×2 (09:55→16:13)
[2019-10-05] MEDS: FAMOTIDINE 20 MG TABLET PO SCH ×2 (09:55→21:48)
[2019-10-05 11:41] LABS: FREE T3 2.69 pg/mL (2.77-5.27); FREE T4 (FREE THYROXINE) 2.93 ng/dL (0.78-2.19)
[2019-10-05] MEDS ORDERED: HYDROMORPHONE HCL INJ/PF 2 MG/ML AMPULE IV PRN (13:20)
--- NOTE | 2019-10-05 13:30 | PDOC PROGRESS REPORT ---
Subjective Progress Note for:: 10/05/19 Subjective:: The patient is quite anxious again today. She is again asking about home oxygen so that she can get out of the hospital. Despite removing cardiac restrictions on her diet she still complains about the food. She is still requiring 2 L/min nasal cannula oxygen. Reason For Visit: ACUTE EXACERBATION OF CHRONIC ONSTRUCTIVE PULMONAR Physical Exam Vital Signs: Temp Pulse Resp BP Pulse Ox 98.5 F 112 H 18 165/88 H 91 L 10/05/19 12:09 10/05/19 12:09 10/05/19 12:09 10/05/19 12:09 10/05/19 12:09 Intake & Output 10/04/19 10/05/19 10/06/19 06:59 06:59 06:59 Intake Total 1000 2780 Balance 1000 2780 Weight 63.7 kg 70 kg 70 kg General appearance: PRESENT: cooperative, mild distress, well-developed Head exam: PRESENT: atraumatic, normocephalic Respiratory exam: PRESENT: symmetrical, unlabored, wheezes. ABSENT: accessory muscle use, rales, tachypnea Cardiovascular exam: PRESENT: RRR, +S1, +S2. ABSENT: diastolic murmur, tachycardia GI/Abdominal exam: PRESENT: normal bowel sounds, soft. ABSENT: distended, gua rding, tenderness Rectal exam: PRESENT: deferred Gentrourinary exam: ABSENT: indwelling catheter Extremities exam: ABSENT: pedal edema Musculoskeletal exam: PRESENT: ambulatory, full ROM, normal inspection. ABSENT: deformity Neurological exam: PRESENT: alert, awake, oriented to person, oriented to place, oriented to time, oriented to situation, CN II-XII grossly intact Psychiatric exam: PRESENT: anxious. ABSENT: agitated Focused psych exam: PRESENT: restlessness. ABSENT: delusional Results Laboratory Results: 10/05/19 05:30 10/05/19 05:30 10/05/19 10/05/19 10/05/19 05:30 05:30 05:30 WBC 11.5 H RBC 3.37 L Hgb 11.7 L Hct 32.9 L MCV 98 H MCH 34.6 H MCHC 35.5 RDW 13.5 Plt Count 248 Sodium 127.4 L Potassium 4.3 Chloride 95 L Carbon Dioxide 21 L Anion Gap 11 BUN 33 H Creatinine 1.83 H Est GFR ( Amer) 34 L Glucose 112 H Calcium 9.1 Magnesium 1.9 Triglycerides 71 Cholesterol 172.65 LDL Cholesterol Direct 100 VLDL Cholesterol 14.0 HDL Cholesterol 63 TSH 0.31 L Free T4 Free T3 pg/mL 10/05/19 05:30 WBC RBC Hgb Hct MCV MCH MCHC RDW Plt Count Sodium Potassium Chloride Carbon Dioxide Anion Gap BUN Creatinine Est GFR ( Amer) Glucose Calcium Magnesium Triglycerides Cholesterol LDL Cholesterol Direct VLDL Cholesterol HDL Cholesterol TSH Free T4 2.93 H Free T3 pg/mL 2.69 L 10/03/19 21:30 Troponin I 0.013 Impressions: Chest X-Ray 10/03/19 22:21 IMPRESSION: COPD. No acute cardiopulmonary process copyright 2011 [employer]- All Rights Reserved Chest/Abdomen CTA 10/04/19 01:44 IMPRESSION: No acute airspace opacities are seen. No filling defect is seen to suggest a pulmonary artery embolism. There is 6 mm noncalcified nodules present which will need interval follow-up in 6-12 months. Assessment and Plan - Diagnosis (1) Acute exacerbation of chronic obstructive airways disease Is this a current diagnosis for this admission?: Yes Plan: 10/04/2019 Scheduled and as needed nebulizers. Including budesonide. No antibiotics at this time as suspicion of infection is low. 10/05/2019 Still requires supplemental oxygen. Continuing with nebulizer treatments. Her white blood cell count is slightly elevated but I believe that is from the systemic steroids that she received yesterday. We will continue current course of treatment and attempt to taper to room air if possible. (2) Acute respiratory failure with hypoxia Is this a current diagnosis for this admission?: Yes Plan: 10/04/2019 Due to exacerbation of COPD. Treatment plan as above. Taper oxygen as tolerated to room air. We are ruling out rhinovirus 10/05/2019 This is more likely acute on chronic failure with hypoxia considering her underlying COPD. Will consider resuming systemic steroids if there is no improvement. I do not believe antibiotic therapy is necessary at this time. We will continue to monitor and if there is a suggestion of a lower respiratory tract infection we will add antibiotics. (3) Acute kidney injury (nontraumatic) Is this a current diagnosis for this admission?: Yes Plan: 10/04/2019 The patient is on 80 mg of Lasix, her intake has been poor lately and she is on an JOYCELYN inhibitor. These are all potential reasons. We will continue to monitor the renal function and continue IV fluids. 10/05/2019 BUN and creatinine are higher today. I have held today's dose of furosemide. I will continue the lisinopril. She also may be on the dry side. We will utilize IV fluids and recheck laboratory studies in the morning. We may need to institute a fluid restriction for the hyponatremia but we will need to monitor renal function as well. (4) Hypertension Qualifiers: Hypertension type: essential hypertension Qualified Code(s): I10 - Essential (primary) hypertension Is this a current diagnosis for this admission?: Yes Plan: 10/04/2019 The patient has a history of hypertension. She is very noncompliant with dietary restrictions. She is on furosemide and lisinopril and with her acute kidney injury we are going to hold those temporarily. She may benefit from beta-blockade as well. We will continue to monitor vital signs in relation to renal function as well as blood pressure and pulse. Adjust medications accordingly. 10/05/2019 The patient is on lisinopril and furosemide. I have added low-dose atenolol for possible hyperthyroidism. I am holding the furosemide today because of her sodium, BUN and creatinine. She has such heightened anxiety that this is likely contributing to her high pressures. We will continue to monitor closely. We may need to use an alternate antihypertensive medication. (5) Hyponatremia Is this a current diagnosis for this admission?: Yes Plan: 10/04/2019 As she has had minimal hyponatremia in the past but not as low as this. It could be the diuretics. He could leave the leg pulmonary issues. We will administer some IV fluid and follow the sodium levels. 10/05/2019 Sodium is only slightly better. We will continue to monitor. I did remove the sodium restriction on her diet. Unfortunately this may tend to increase her pressure. (6) Hyperlipidemia, unspecified Qualifiers: Hyperlipidemia type: unspecified Qualified Code(s): E78.5 - Hyperlipidemia, unspecified Is this a current diagnosis for this admission?: Yes Plan: 10/04/2019 Currently on statin therapy. LDL is 100. Total cholesterol is 170. Patient is very noncompliant with her diet. Continue statin therapy. 10/05/2019 Continue statin therapy (7) Tobacco use disorder, severe, dependence Is this a current diagnosis for this admission?: Yes Plan: 10/04/2019 We will encourage cessation. The patient acknowledges the increased risk especially with underlying hypertension and she did state that they are following an abdominal aortic aneurysm as well. 10/05/2019 We will have nicotine patch available. (8) Anxiety Is this a current diagnosis for this admission?: Yes Plan: 10/04/2019 The patient has severe anxiety. She in fact became tearful just at the thought of being in the hospital. I will institute trials of temazepam at night and alprazolam during the day as opposed to the Xanax that she usually takes. I explained this is primarily due to a longer half-life. I will encourage use of an SSRI to help with her chronic anxiety as well. 10/05/2019 Anxiety is significant issue in this patient. Her TSH was low and her T4 was slightly high. I did start low-dose propranolol. She is getting all of her usual narcotic medication and so this is not likely to be withdrawal. The anxiety level is certainly interfering with her care. It is likely driving her pressure up. She is not sleeping well. She is extremely finicky with her diet and is very noncompliant with cardiac restrictions. She keeps asking for oxygen to go home with. She does have underlying COPD and she may very well need oxygen but I also believe anxiety is contributing to her overall status. Anxiety certainly will cause hypoxia. - Plan Summary Summary: Patient will be admitted to the medical floor where she will receive routine supportive and symptomatic cares. She will be tested for coronavirus Covid-19. She will be treated with aggressive pulmonary toilet utilizing Xopenex, Pulmicort and Atrovent delivered via nebulizer therapy. She will receive intravenous steroids to complete a short burst dosing. She will receive supplemental oxygen as required to maintain adequate oxygen saturation of 90 to 94%. She will receive IV fluids and her renal functions will be monitored closely. She will be continued on her usual medications as appropriate. CBCs metabolic profiles and magnesium levels be obtained as needed. A nicotine replacement patch will be provided for the patient's use, if desired. Patient will be maintained on a cardiac diet. A lipid profile and a TSH will be obtained. - Time Time Spent with patient: 15-24 minutes Medications reviewed and adjusted accordingly: Yes Anticipated discharge: Home
[2019-10-05] MEDS: ALPRAZOLAM 0.5 MG TABLET PO PRN (21:47)
[2019-10-05] MEDS: PROPRANOLOL HCL 10 MG TABLET PO SCH (21:47)
[2019-10-05] MEDS: ATORVASTATIN CALCIUM 20 MG TABLET PO SCH (21:47)
[2019-10-06] MEDS: NORMAL SALINE 1000 ML 1,000 ML IV PRN ×2 (00:36→09:44)
[2019-10-06] MEDS: LEVALBUTEROL HCL NEB 1.25 MG/3 ML AMPUL NEB SCH ×3 (02:25→14:09)
[2019-10-06] MEDS: IPRATROPIUM BROMIDE 0.02% NEB 0.5 MG/2.5 ML AMPUL NEB SCH ×3 (02:25→14:09)
[2019-10-06 05:32] LABS: ABSOLUTE EOSINOPHILS # (AUTO) 0.1 10^3/uL (0.0-0.6); ABSOLUTE LYMPHOCYTES (AUTO) 2.4 10^3/uL (0.5-4.7); ABSOLUTE MONOCYTES (AUTO) 1.4 10^3/uL (0.1-1.4); ABSOLUTE NEUT (AUTO) 8.1 10^3/uL (1.7-8.2); BASOPHILS % (AUTO) 0.4 % (0-2); EOSINOPHILS % (AUTO) 0.7 % (0-6); HEMATOCRIT 36.9 % (36.0-47.0); HEMOGLOBIN 12.6 g/dL (12.0-15.5); LYMPHOCYTES % (AUTO) 20.2 % (13-45); MEAN CORPUSCULAR HGB CONC 34.2 g/dL (32.0-36.0); MEAN CORPUSCULAR VOLUME 99 fl (80-97); MONOCYTES % (AUTO) 11.4 % (3-13); PLATELET COUNT 277 10^3/uL (150-450); RED BLOOD COUNT 3.71 10^6/uL (3.72-5.28); RED CELL DISTRIBUTION WIDTH 13.4 % (11.5-14.0); SEGMENTED NEUTROPHILS % (AUTO) 67.3 % (42-78); TOTAL CELLS COUNTED % (AUTO) 100 %; WHITE BLOOD COUNT 12.1 10^3/uL (4.0-10.5)
[2019-10-06] MEDS: HEPARIN SOD (PORCINE) 5,000 UNIT/ML 1 ML VIAL SUBCUT SCH ×2 (05:32→13:02)
[2019-10-06 05:53] LABS: ANION GAP 8 (5-19); BLOOD UREA NITROGEN 30 mg/dL (7-20); CALCIUM 9.4 mg/dL (8.4-10.2); CARBON DIOXIDE 24 mmol/L (22-30); CHLORIDE 102 mmol/L (98-107); GLUCOSE 71 mg/dL (75-110); POTASSIUM 4.6 mmol/L (3.6-5.0)
[2019-10-06] MEDS: OXYCODONE HCL SR 10 MG TABLET PO SCH ×2 (06:21→13:06)
[2019-10-06] MEDS: BUDESONIDE NEB 0.5 MG/2 ML AMPUL NEB SCH (08:38)
[2019-10-06] MEDS: FAMOTIDINE 20 MG TABLET PO SCH (09:29)
[2019-10-06] MEDS: HYDROMORPHONE HCL 2 MG TABLET PO SCH ×2 (09:29→16:08)
[2019-10-06] MEDS: PROPRANOLOL HCL 10 MG TABLET PO SCH (09:30)
[2019-10-06] MEDS: DOCUSATE SODIUM 100 MG CAPSULE PO SCH (09:30)
[2019-10-06] MEDS: FLUTICASONE/UMECLIDIN/VILANTER 100-62.5-25 MCG/DOSE IH SCH (09:30)
[2019-10-06] MEDS: VITAMIN B COMPLEX TABLET PO SCH (09:30)
[2019-10-06] MEDS: FUROSEMIDE 80 MG TABLET PO SCH (09:30)
[2019-10-06] MEDS: ALPRAZOLAM 0.5 MG TABLET PO PRN ×2 (09:44→16:16)
[2019-10-06] MEDS ORDERED: LISINOPRIL 10 MG TABLET PO SCH (10:00)
[2019-10-06] MEDS ORDERED: AMLODIPINE BESYLATE 10 MG TABLET PO SCH (11:00)
[2019-10-06] MEDS ORDERED: FUROSEMIDE 40 MG TABLET PO SCH (11:00)
--- NOTE | 2019-10-06 12:30 | PDOC PROGRESS REPORT ---
Subjective Progress Note for:: 10/06/19 Subjective:: Patient is still extremely anxious. She reports hallucinations with Lorazepam last night. I believe this is a combination of sleep deprivation and the medication. She still requires oxygen therapy. Her blood pressure is still high but she is extremely anxious. Reason For Visit: ACUTE EXACERBATION OF CHRONIC ONSTRUCTIVE PULMONAR Physical Exam Vital Signs: Temp Pulse Resp BP Pulse Ox 98.5 F 95 18 160/104 H 96 10/06/19 08:26 10/06/19 08:38 10/06/19 08:38 10/06/19 08:26 10/06/19 08:38 Pulse Oximeter Nocturnal Start: 10/05/19 13:24 Freq: RTQ4 Status: Complete Protocol: Document 10/06/19 04:51 DBE (Rec: 10/06/19 04:55 DBE [id number]) Nocturnal Pulse Oximetry Equipment Usage Equipment in Use Oxygen Delivery Method (includes room Nasal Cannula air) O2 Sat by Pulse Oximetry (92-100) 94 Continuous SpO2 Machine # 6 Intake & Output 10/05/19 10/06/19 10/07/19 06:59 06:59 06:59 Intake Total 2780 3078 913 Balance 2780 3078 913 Weight 70 kg 74.5 kg General appearance: PRESENT: cooperative, mild distress, well-developed Head exam: PRESENT: atraumatic, normocephalic Eye exam: PRESENT: conjunctiva pink. ABSENT: scleral icterus Ear exam: PRESENT: normal external ear exam. ABSENT: bleeding, drainage Mouth exam: PRESENT: moist, tongue midline Respiratory exam: PRESENT: symmetrical, unlabored, wheezes - Expiratory wheezes faint bilaterally. ABSENT: prolonged expiratory phas, rales, rhonchi, tachypnea Cardiovascular exam: PRESENT: RRR, +S1, +S2 GI/Abdominal exam: PRESENT: normal bowel sounds, soft. ABSENT: distended, guarding, tenderness Rectal exam: PRESENT: deferred Gentrourinary exam: ABSENT: indwelling catheter Extremities exam: ABSENT: pedal edema Musculoskeletal exam: PRESENT: ambulatory, full ROM, normal inspection. ABSENT: deformity Neurological exam: PRESENT: alert, awake, oriented to person, oriented to place, oriented to time, oriented to situation, CN II-XII grossly intact Psychiatric exam: PRESENT: anxious Results Laboratory Results: 10/06/19 04:43 10/06/19 04:43 10/06/19 10/06/19 04:43 04:43 WBC 12.1 H RBC 3.71 L Hgb 12.6 Hct 36.9 MCV 99 H MCH 34.0 H MCHC 34.2 RDW 13.4 Plt Count 277 Seg Neutrophils % 67.3 Sodium 133.5 L Potassium 4.6 Chloride 102 Carbon Dioxide 24 Anion Gap 8 BUN 30 H Creatinine 1.64 H Est GFR ( Amer) 39 L Glucose 71 L Calcium 9.4 Magnesium 2.0 10/03/19 21:30 Troponin I 0.013 Impressions: Chest X-Ray 10/03/19 22:21 IMPRESSION: COPD. No acute cardiopulmonary process copyright 2011 [employer]- All Rights Reserved Chest/Abdomen CTA 10/04/19 01:44 IMPRESSION: No acute airspace opacities are seen. No filling defect is seen to suggest a pulmonary artery embolism. There is 6 mm noncalcified nodules present which will need interval follow-up in 6-12 months. Assessment and Plan - Diagnosis (1) Acute exacerbation of chronic obstructive airways disease Is this a current diagnosis for this admission?: Yes Plan: 10/04/2019 Scheduled and as needed nebulizers. Including budesonide. No antibiotics at this time as suspicion of infection is low. 10/05/2019 Still requires supplemental oxygen. Continuing with nebulizer treatments. Her white blood cell count is slightly elevated but I believe that is from the systemic steroids that she received yesterday. We will continue current course of treatment and attempt to taper to room air if possible. 10/06/2019 A nocturnal oximetry study showed that the patient desaturates. I believe her lowest pulse ox was 80%. This should qualify her for home oxygen and she should consider a sleep study after discharge. We will continue her regimen of inhalers. At some point she may even require home nebulizer machine. (2) Acute respiratory failure with hypoxia Is this a current diagnosis for this admission?: Yes Plan: 10/04/2019 Due to exacerbation of COPD. Treatment plan as above. Taper oxygen as tolerated to room air. We are ruling out rhinovirus 10/05/2019 This is more likely acute on chronic failure with hypoxia considering her underlying COPD. Will consider resuming systemic steroids if there is no improvement. I do not believe antibiotic therapy is necessary at this time. We will continue to monitor and if there is a suggestion of a lower respiratory tract infection we will add antibiotics. 10/06/2019 Still requiring 2 L nasal cannula. (3) Acute kidney injury (nontraumatic) Is this a current diagnosis for this admission?: Yes Plan: 10/04/2019 The patient is on 80 mg of Lasix, her intake has been poor lately and she is on an JOYCELYN inhibitor. These are all potential reasons. We will continue to monitor the renal function and continue IV fluids. 10/05/2019 BUN and creatinine are higher today. I have held today's dose of furosemide. I will continue the lisinopril. She also may be on the dry side. We will utilize IV fluids and recheck laboratory studies in the morning. We may need to institute a fluid restriction for the hyponatremia but we will need to monitor renal function as well. 10/06/2019 I explained to the patient that this is multifactorial. She was on lisinopril and 80 mg of Lasix. This was likely too much. I will substitute amlodipine for the lisinopril. I will also resume the Lasix but at a lower dose of 40 mg daily. She will no doubt need cardiology follow-up as an outpatient in addition to establishing with a new primary care provider. The elevated BUN and creatinine should resolve. (4) Hypertension Qualifiers: Hypertension type: essential hypertension Qualified Code(s): I10 - Essential (primary) hypertension Is this a current diagnosis for this admission?: Yes Plan: 10/04/2019 The patient has a history of hypertension. She is very noncompliant with dietary restrictions. She is on furosemide and lisinopril and with her acute kidney injury we are going to hold those temporarily. She may benefit from beta-blockade as well. We will continue to monitor vital signs in relation to renal function as well as blood pressure and pulse. Adjust medications accordin gly. 10/05/2019 The patient is on lisinopril and furosemide. I have added low-dose atenolol for possible hyperthyroidism. I am holding the furosemide today because of her sodium, BUN and creatinine. She has such heightened anxiety that this is likely contributing to her high pressures. We will continue to monitor closely. We may need to use an alternate antihypertensive medication. 10/06/2019 Changes in blood pressure medication as above. Follow-up with primary care and cardiology as an outpatient. Had a long talk with the patient about her medication noncompliance and with a history of an abdominal aortic aneurysm she needs to be very compliant with diet, exercise and an inhaler regimen for her breathing. (5) Hyponatremia Is this a current diagnosis for this admission?: Yes Plan: 10/04/2019 As she has had minimal hyponatremia in the past but not as low as this. It could be the diuretics. He could leave the leg pulmonary issues. We will administer some IV fluid and follow the sodium levels. 10/05/2019 Sodium is only slightly better. We will continue to monitor. I did remove the sodium restriction on her diet. Unfortunately this may tend to increase her pressure. 10/06/2019 Sodium is up to 133. It continues to improve. I think this is a combination of the IV saline, no salt restriction and changes in medication regimen. (6) Hyperlipidemia, unspecified Qualifiers: Hyperlipidemia type: unspecified Qualified Code(s): E78.5 - Hyperlipidemia, unspecified Is this a current diagnosis for this admission?: Yes Plan: 10/04/2019 Currently on statin therapy. LDL is 100. Total cholesterol is 170. Patient is very noncompliant with her diet. Continue statin therapy. 10/05/2019 Continue statin therapy (7) Tobacco use disorder, severe, dependence Is this a current diagnosis for this admission?: Yes Plan: 10/04/2019 We will encourage cessation. The patient acknowledges the increased risk especially with underlying hypertension and she did state that they are following an abdominal aortic aneurysm as well. 10/05/2019 We will have nicotine patch available. 10/06/2019 We discussed in earnest the fact that if she continues with her noncompliance as well as tobacco use it will substantially shorten her life span as well as impact the quality of life with multiple recurrent hospitalizations. Continue to encourage cessation. (8) Anxiety Is this a current diagnosis for this admission?: Yes Plan: 10/04/2019 The patient has severe anxiety. She in fact became tearful just at the thought of being in the hospital. I will institute trials of temazepam at night and alprazolam during the day as opposed to the Xanax that she usually takes. I explained this is primarily due to a longer half-life. I will encourage use of an SSRI to help with her chronic anxiety as well. 10/05/2019 Anxiety is significant issue in this patient. Her TSH was low and her T4 was slightly high. I did start low-dose propranolol. She is getting all of her us ual narcotic medication and so this is not likely to be withdrawal. The anxiety level is certainly interfering with her care. It is likely driving her pressure up. She is not sleeping well. She is extremely finicky with her diet and is very noncompliant with cardiac restrictions. She keeps asking for oxygen to go home with. She does have underlying COPD and she may very well need oxygen but I also believe anxiety is contributing to her overall status. Anxiety certainly will cause hypoxia. 10/06/2019 Adverse reaction to the lorazepam last night but I believe this is due to sleep deprivation. I think she needs to establish a more aggressive treatment plan as an outpatient with limited medications that are prone to dependence. She is already on high-dose chronic narcotic analgesia. - Plan Summary Summary: Patient will be admitted to the medical floor where she will receive routine supportive and symptomatic cares. She will be tested for coronavirus Covid-19. She will be treated with aggressive pulmonary toilet utilizing Xopenex, Pulmico rt and Atrovent delivered via nebulizer therapy. She will receive intravenous steroids to complete a short burst dosing. She will receive supplemental oxygen as required to maintain adequate oxygen saturation of 90 to 94%. She will receive IV fluids and her renal functions will be monitored closely. She will be continued on her usual medications as appropriate. CBCs metabolic profiles and magnesium levels be obtained as needed. A nicotine replacement patch will be provided for the patient's use, if desired. Patient will be maintained on a cardiac diet. A lipid profile and a TSH will be obtained. - Time Time Spent with patient: 25-34 minutes Smoking Cessation Education: 3 to 10 minutes Medications reviewed and adjusted accordingly: Yes Anticipated discharge: Home Within: within 48 hours
[2019-10-06 14:31] VITALS: BP 146/82
--- NOTE | 2019-10-06 15:03 | PDOC DISCHARGE SUMMARY ---
Impression - Admit/DC Date/PCP Admission Date/Primary Care Provider: 10/04/19 05:44 NIC KING PA-C Discharge Date: 10/06/19 - Discharge Diagnosis (1) Acute exacerbation of chronic obstructive airways disease Is this a current diagnosis for this admission?: Yes (2) Acute respiratory failure with hypoxia Is this a current diagnosis for this admission?: Yes (3) Acute kidney injury (nontraumatic) Is this a current diagnosis for this admission?: Yes (4) Hypertension Is this a current diagnosis for this admission?: Yes (5) Hyponatremia Is this a current diagnosis for this admission?: Yes (6) Hyperlipidemia, unspecified Is this a current diagnosis for this admission?: Yes (7) Tobacco use disorder, severe, dependence Is this a current diagnosis for this admission?: Yes (8) Anxiety Is this a current diagnosis for this admission?: Yes - Assessment Summary: Patient will be admitted to the medical floor where she will receive routine supportive and symptomatic cares. She will be tested for coronavirus Covid-19. She will be treated with aggressive pulmonary toilet utilizing Xopenex, Pulmicort and Atrovent delivered via nebulizer therapy. She will receive intravenous steroids to complete a short burst dosing. She will receive supplemental oxygen as required to maintain adequate oxygen saturation of 90 to 94%. She will receive IV fluids and her renal functions will be monitored closely. She will be continued on her usual medications as appropriate. CBCs metabolic profiles and magnesium levels be obtained as needed. A nicotine replacement patch will be provided for the patient's use, if desired. Patient will be maintained on a cardiac diet. A lipid profile and a TSH will be obtained. - Additional Information Resuscitation Status: Full Code Discharge Diet: Cardiac Discharge Activity: Activity As Tolerated, Energy Conservation Referrals: [facility] [Outside] (PATIENT TO BE FOLLOWED BY HEALTH DEPT. ON SELF QUARANTINE AT HOME. ONCE THE HEALTH DEPT. RELEASES PATIENT THEN PATIENT MAY SCHEDULE A FOLLOW UP APPT. WITH PCP.) NIC KING PA-C [Primary Care Provider] - (Once cleared by [facility] Department) Prescriptions: Propranolol HCl [Inderal 20 mg Tablet] 20 mg PO Q12 30 Days #60 tablet Furosemide [Lasix 40 mg Tablet] 40 mg PO DAILY 30 Days #30 tablet Amlodipine Besylate [Norvasc 10 mg Tablet] 10 mg PO DAILY 30 Days #30 tablet Fluticasone/Umeclidin/Vilanter [Trelegy 100-62.5-25 Mcg Ellipta 14 Dose/Dpi] 1 inh IH DAILY 28 Days #2 inhaler Levalbuterol Tartrate [Xopenex Hfa] 2 inh IH Q4 PRN #1 hfa.aer.ad PRN Reason: Shortness Of Breath Home Medications: Alprazolam [Xanax 0.5 mg Tablet] 0.5 mg PO DAILYP PRN 10/04/19 Atorvastatin Calcium [Lipitor 10 mg Tablet] 10 mg PO QHS 10/04/19 Hydromorphone HCl [Dilaudid] 8 mg PO Q12HP PRN 10/04/19 Oxycodone HCl [Oxycontin Sr 10 mg Tablet] 10 mg PO Q8 10/04/19 Alprazolam [Xanax 0.5 mg Tablet] 0.5 mg PO TIDP PRN tablet 10/06/19 Amlodipine Besylate [Norvasc 10 mg Tablet] 10 mg PO DAILY 30 Days #30 tablet 10/06/19 Atorvastatin Calcium [Lipitor 20 mg Tablet] 10 mg PO QHS tablet 10/06/19 Docusate Sodium [Colace 100 mg Capsule] 100 mg PO BID capsule 10/06/19 Famotidine [Pepcid 20 mg Tablet] 20 mg PO Q12 tablet 10/06/19 Fluticasone/Umeclidin/Vilanter [Trelegy 100-62.5-25 Mcg Ellipta 14 Dose/Dpi] 1 inh IH DAILY 28 Days #2 inhaler 10/06/19 Furosemide [Lasix 40 mg Tablet] 40 mg PO DAILY 30 Days #30 tablet 10/06/19 Levalbuterol Tartrate [Xopenex Hfa] 2 inh IH Q4 PRN #1 hfa.aer.ad 10/06/19 Nicotine [Nicoderm 21 mg/24 Hr Transderm Patch] 1 each TD DAILYP PRN patch.td24 10/06/19 Oxycodone HCl [Oxycontin Sr 10 mg Tablet] 10 mg PO TID@0600,1300,2000 tab.sr.12h 10/06/19 Propranolol HCl [Inderal 20 mg Tablet] 20 mg PO Q12 30 Days #60 tablet 03/22/20 Vitamin B Complex [Vitamin B Complex Tablet] 1 tab PO DAILY tablet 10/06/19 History of Present Illiness History of Present Illness: NICO AVILA is a 59 year old female who presented to the emergency room with a one-week history of dyspnea. She admits developing dyspnea with upper respiratory infection symptoms of a cough productive of clear phlegm and chest congestion 1 week ago with a gradual worsening until 2 days ago when her dyspnea became severe. She was seen by her primary care provider on 10/03/2019 and was told she had bilateral pneumonia and a serous otitis on the left. She was subsequently treated with antibiotics utilizing Augmentin and azithromycin. Af ter the first dose of medicine she also began having some diarrhea and her respiratory status did not seem to be improving, in fact it seemed to be worsening with increasing tachypnea and decreasing O2 sats. She subsequently came to the emergency room for further evaluation and treatment. She denies prior similar episodes. She denies other associated or accompanying signs and symptoms. In the emergency room she was found to have an unremarkable evaluation however her oxygen saturation dropped into the mid to low 80s with exertion and she was therefore admitted to the hospital for further evaluation and treatment. Hospital Course Hospital Course: See details above Physical Exam Vital Signs: Temp Pulse Resp BP Pulse Ox 98.0 F 69 20 146/82 H 95 10/06/19 14:30 10/06/19 14:30 10/06/19 14:30 10/06/19 14:30 10/06/19 14:30 Pulse Oximeter Nocturnal Start: 10/05/19 13:24 Freq: RTQ4 Status: Complete Protocol: Document 10/06/19 04:51 DBE (Rec: 10/06/19 04:55 DBE [id number]) Nocturnal Pulse Oximetry Equipment Usage Equipment in Use Oxygen Delivery Method (includes room Nasal Cannula air) O2 Sat by Pulse Oximetry (92-100) 94 Continuous SpO2 Machine # 6 Intake & Output 10/05/19 10/06/19 10/07/19 06:59 06:59 06:59 Intake Total 2610 3078 1043 Balance 2780 3078 1043 Weight 70 kg 74.5 kg Additional comments: General appearance: PRESENT: cooperative, mild distress, well-developed Head exam: PRESENT: atraumatic, normocephalic Eye exam: PRESENT: conjunctiva pink. ABSENT: scleral icterus Ear exam: PRESENT: normal external ear exam. ABSENT: bleeding, drainage Mouth exam: PRESENT: moist, tongue midline Respiratory exam: PRESENT: symmetrical, unlabored, wheezes - Expiratory wheezes faint bilaterally. ABSENT: prolonged expiratory phas, rales, rhonchi, tachypnea Cardiovascular exam: PRESENT: RRR, +S1, +S2 GI/Abdominal exam: PRESENT: normal bowel sounds, soft. ABSENT: distended, guarding, tenderness Rectal exam: PRESENT: deferred Gentrourinary exam: ABSENT: indwelling catheter Extremities exam: ABSENT: pedal edema Musculoskeletal exam: PRESENT: ambulatory, full ROM, normal inspection. ABSENT: deformity Neurological exam: PRESENT: alert, awake, oriented to person, oriented to place, oriented to time, oriented to situation, CN II-XII grossly intact Psychiatric exam: PRESENT: anxious Results Laboratory Results: WBC 12.1 10^3/uL (4.0-10.5) H 10/06/19 04:43 RBC 3.71 10^6/uL (3.72-5.28) L 10/06/19 04:43 Hgb 12.6 g/dL (12.0-15.5) 10/06/19 04:43 Hct 36.9 % (36.0-47.0) 10/06/19 04:43 MCV 99 fl (80-97) H 10/06/19 04:43 MCH 34.0 pg (27.0-33.4) H 10/06/19 04:43 MCHC 34.2 g/dL (32.0-36.0) 10/06/19 04:43 RDW 13.4 % (11.5-14.0) 10/06/19 04:43 Plt Count 277 10^3/uL (150-450) 10/06/19 04:43 Lymph % (Auto) 20.2 % (13-45) 10/06/19 04:43 Howard % (Auto) 11.4 % (3-13) 10/06/19 04:43 Eos % (Auto) 0.7 % (0-6) 10/06/19 04:43 Baso % (Auto) 0.4 % (0-2) 10/06/19 04:43 Absolute Neuts (auto) 8.1 10^3/uL (1.7-8.2) 10/06/19 04:43 Absolute Lymphs (auto) 2.4 10^3/uL (0.5-4.7) 10/06/19 04:43 Absolute Monos (auto) 1.4 10^3/uL (0.1-1.4) 10/06/19 04:43 Absolute Eos (auto) 0.1 10^3/uL (0.0-0.6) 10/06/19 04:43 Absolute Basos (auto) 0.0 10^3/uL (0.0-0.2) 10/06/19 04:43 Seg Neutrophils % 67.3 % (42-78) 10/06/19 04:43 PT 12.9 SEC (11.4-15.4) 10/03/19 21:30 INR 0.97 10/03/19 21:30 Sodium 133.5 mmol/L (137-145) L 10/06/19 04:43 Potassium 4.6 mmol/L (3.6-5.0) 10/06/19 04:43 Chloride 102 mmol/L (98-107) 10/06/19 04:43 Carbon Dioxide 24 mmol/L (22-30) 10/06/19 04:43 Anion Gap 8 (5-19) 10/06/19 04:43 BUN 30 mg/dL (7-20) H 10/06/19 04:43 Creatinine 1.64 mg/dL (0.52-1.25) H 10/06/19 04:43 Est GFR ( Amer) 39 (>60) L 10/06/19 04:43 Est GFR (MDRD) Non-Af 32 (>60) L 10/06/19 04:43 Glucose 71 mg/dL (75-110) L 10/06/19 04:43 Lactic Acid 0.8 mmol/L (0.7-2.1) 10/04/19 07:46 Calcium 9.4 mg/dL (8.4-10.2) 10/06/19 04:43 Magnesium 2.0 mg/dL (1.6-2.3) 10/06/19 04:43 Total Bilirubin 0.9 mg/dL (0.2-1.3) 10/03/19 21:30 Direct Bilirubin 0.4 mg/dL (0.0-0.4) 10/03/19 21:30 Neonat Total Bilirubin Not Reportable 10/03/19 21:30 Neonat Direct Bilirubin Not Reportable 10/03/19 21:30 Neonat Indirect Bili Not Reportable 10/03/19 21:30 AST 73 U/L (14-36) H 10/03/19 21:30 ALT 43 U/L (<35) H 10/03/19 21:30 Alkaline Phosphatase 118 U/L (38-126) 10/03/19 21:30 Troponin I 0.013 ng/mL 10/03/19 21:30 Total Protein 7.8 g/dL (6.3-8.2) 10/03/19 21:30 Albumin 4.3 g/dL (3.5-5.0) 10/03/19 21:30 Triglycerides 71 mg/dL (<150) 10/05/19 05:30 Cholesterol 172.65 mg/dL (0-200) 10/05/19 05:30 LDL Cholesterol Direct 100 mg/dL (<100) 10/05/19 05:30 VLDL Cholesterol 14.0 mg/dL (10-31) 10/05/19 05:30 HDL Cholesterol 63 mg/dL (>40) 10/05/19 05:30 TSH 0.31 uIU/mL (0.47-4.68) L 10/05/19 05:30 Free T4 2.93 ng/dL (0.78-2.19) H 10/05/19 05:30 Free T3 pg/mL 2.69 pg/mL (2.77-5.27) L 10/05/19 05:30 Influenza A (Rapid) NEGATIVE (NEGATIVE) 10/04/19 00:18 Influenza B (Rapid) NEGATIVE (NEGATIVE) 10/04/19 00:18 Group A Strep Rapid NEGATIVE (NEGATIVE) 10/04/19 00:18 10/03/19 21:30 Troponin I 0.013 Impressions: Chest X-Ray 10/03/19 22:21 IMPRESSION: COPD. No acute cardiopulmonary process copyright 2011 [employer]- All Rights Reserved Chest/Abdomen CTA 10/04/19 01:44 IMPRESSION: No acute airspace opacities are seen. No filling defect is seen to suggest a pulmonary artery embolism. There is 6 mm noncalcified nodules present which will need interval follow-up in 6-12 months. Plan Health Concerns: Covid-19 results still pending. Patient's marked noncompliance with her own healthcare. Plan of Treatment: We will substitute blood pressure medication for lisinopril due to her elevated BUN and creatinine. Will use amlodipine 10 mg daily. In addition her TSH was low. She states that she has known about her hyperthyroidism in the past. I have started propranolol 20 mg twice daily to help with some of her symptoms. This is likely contributing to some of her severe anxiety. Lastly I have decreased her furosemide to 40 mg daily from 80 mg daily. She has underlying COPD and on room air drops her oxygen saturation into the low 80s. We will send her home with home oxygen therapy. I have also started a Trelegy inhaler. Goals: The patient needs to take her health care seriously. She needs to stop smoking and follow a strict cardiac diet. Time Spent: Greater than 30 Minutes Stroke Is this a Stroke Patient?: No Acute Heart Failure - Is this a Heart Failure Patient?: No
[2019-10-06] MEDS ORDERED: PROPRANOLOL HCL 20 MG TABLET PO SCH (22:00)
== END 2019-10-06 16:47 | disposition home or self-care (01) | DRG 190 ==
LOC: ER 21:13 → EH 10-04 05:44 → 4W 10-04 07:00 → 5 10-04 10:37
PROVIDERS: ADMIT Emergency Medicine; ATTEND Hospitalist
DX: J44.1 Chronic obstructive pulmonary disease with (acute) exacerbation (principal); J96.21 Acute and chronic respiratory failure with hypoxia; N17.9 Acute kidney failure, unspecified; E87.1 Hypo-osmolality and hyponatremia; E78.5 Hyperlipidemia, unspecified; I10 Essential (primary) hypertension; F17.210 Nicotine dependence, cigarettes, uncomplicated; E05.90 Thyrotoxicosis, unspecified without thyrotoxic crisis or storm; H65.92 Unspecified nonsuppurative otitis media, left ear; F41.1 Generalized anxiety disorder; T42.4X5A Adverse effect of benzodiazepines, initial encounter; Z91.11 Patient's noncompliance with dietary regimen; Z79.899 Other long term (current) drug therapy; Z91.048 Other nonmedicinal substance allergy status
CPT/HCPCS: 36415; 71045; 71275; 80048; 80053; 80061; 83605; 83735; 84439; 84443; 84481; 84484; 85025; 85027; 85610; 87040; 87070; 87635; 87804; 87880; 94762; 96361; 96374; 96375; 99291; 99292; J1100; J1170; J1644; J2920; J3490; J7030; J7614

== ENCOUNTER → 2019-11-04 | Outpatient (CLI) | payer MEDICARE ==
--- NOTE | 2019-11-04 11:56 | RADIOLOGY REPORT (SQ) ---
EXAM DESCRIPTION: U/S RETROPERITON LTD IMAGES COMPLETED DATE/TIME: 11/04/2019 11:20 am REASON FOR STUDY: (I71.4)ABDOMINAL AORTIC ANEURYSM, WITHOUT RUPTURE I71.4 ABDOMINAL AORTIC ANEURYSM , WITHOUT RUPTURE COMPARISON: 09/12/2018 TECHNIQUE: Static and dynamic grayscale images acquired of the aorta and stored on PACs. Selected co mary Doppler and spectral images recorded. LIMITATIONS: None. FINDINGS: AORTIC CALIBER MAXIMAL PROXIMAL: 3.0 x 3.1 Cm. MID: 2.8 x 3.0 cm. DISTAL: 3.9 x 4.3 cm. ILIAC DIAMETER RIGHT: Not visualized due to overlying bowel gas. LEFT: Not visualized due to overlying bowel gas. OTHER: Multifocal scattered plaque throughout. Mural thrombus node along the anterior aneurysm wall measuring up to 14 mm. IMPRESSION: Increased size of the abdominal aortic aneurysm measuring up to 4.3 cm inferiorly, previ ously 3.7 cm. Follow-up recommendations as below. COMMENT: Aortic aneurysm imaging followup: 4.0-4.4 cm Every 12 months, vascular consultation recommended *Based upon the Society for Vascular Surgery Guidelines: J Vasc Surg. 2009 Oct;50(4 Suppl):S2-49 *For aortas of maximum diameter of 2.6-2.9 cm meeting the criteria for AAA (?1.5 x proximal normal se gment) TECHNICAL DOCUMENTATION: JOB ID: [id number] 2010 [employer]- All Rights Reserved Reading location - IP/workstation name: [email or web address]
== END ==
LOC: RAD 10:34
PROVIDERS: ATTEND Physician Assistant
DX: I71.4 Abdominal aortic aneurysm, without rupture (principal)
CPT/HCPCS: 76775

== ENCOUNTER 2020-04-19 11:41 | Emergency (ER) | payer MEDICARE ==
[2020-04-19 12:15] VITALS: BP 133/71
[2020-04-19] MEDS ORDERED: IBUPROFEN 600 MG TABLET PO ONE (12:21)
--- NOTE | 2020-04-19 12:25 | ER Document Report ---
ED Extremity Problem, Lower - General Chief Complaint: Toe Injury Stated Complaint: LEFT GREAT TOE INJURY Time Seen by Provider: 04/19/20 12:14 Primary Care Provider: [facility] [Provider Group] - Follow up as needed CELESTINO ORONA PA-C [Primary Care Provider] - Follow up as needed MASON COLLINS MD [ACTIVE STAFF] - Follow up as needed Mode of Arrival: Wheelchair Information source: Patient Notes: 59-year-old female presented to ED for complaint of pain swelling and bruising to her left foot especially the second and third toe. She states that the top of her foot behind the second and third toe are very painful to. She does have a 2+ pitting edema to her foot. She states she always does due to an aneurysm that she takes Lasix to reduce the swelling. She is alert oriented respirations regular nonlabored speaking in full sentences. She does smoke a pack a day drinks weekly is on chronic pain management. She takes 10 mg a daily OxyContin extended release 3 times daily and 8 mg of Dilaudid twice a day. She states she is having pain in this toe so I have offered her and she has accepted some ibuprofen. We will get x-rays and reevaluate. TRAVEL OUTSIDE OF THE [place] IN LAST 30 DAYS: No - HPI Patient complains to provider of: Injury, Pain, Swelling Location: Foot Occurred: Yesterday Where: Home, Indoors Onset/Duration: Sudden, Persistent Quality of pain: Sharp Severity: Severe Pain Level: 5 Context: Other - To great things knocked her down hit her knocking her so that her foot bent backwards Recent injury: Yes Associated symptoms: Painful ambulation Exacerbated by: Hanging down, Movement, Walking Relieved by: Elevation, Ice, Rest - Related Data Allergies/Adverse Reactions: adhesive tape [Adhesive Tape] Allergy (Verified 09/26/13 10:48) Past Medical History - General Information source: Patient - Social History Smoking Status: Current Every Day Smoker Cigarette use (# per day): Yes - Pack per day Smoking Education Provided: Yes - 3 minutes Frequency of alcohol use: Social - Couple times a week Drug Abuse: None Family History: CAD, Hypertension, Malignancy. denies: DM - Past Medical History Cardiac Medical History: Reports: Hx Hypercholesterolemia, Hx Hypertension Pulmonary Medical History: Reports: None EENT Medical History: Reports: None Neurological Medical History: Reports: None Endocrine Medical History: Reports: None Renal/ Medical History: Reports: None Malignancy Medical History: Reports: None GI Medical History: Reports: None Musculoskeletal Medical History: Reports Hx Arthritis - Chronic back pain Skin Medical History: Reports None Psychiatric Medical History: Reports: None Traumatic Medical History: Reports: None Infectious Medical History: Reports: None Past Surgical History: Reports: Hx Orthopedic Surgery - Back surgeries, bilateral carpal tunnel surgeries, pain stimulator surgery - Immunizations Hx Diphtheria, Pertussis, Tetanus Vaccination: No Review of Systems - Review of Systems Constitutional: No symptoms reported EENT: No symptoms reported Cardiovascular: No symptoms reported Respiratory: No symptoms reported Gastrointestinal: No symptoms reported Genitourinary: No symptoms reported Female Genitourinary: No symptoms reported Musculoskeletal: Joint pain, Other - Pain and swelling to the left foot and ankle Skin: Change in color - Ecchymosis to the top and second and third toe Hematologic/Lymphatic: No symptoms reported Neurological/Psychological: No symptoms reported -: Yes All other systems reviewed and negative Physical Exam - Vital signs Vitals: Temp Pulse Resp BP Pulse Ox 98.5 F 98 16 133/71 H 100 04/19/20 12:13 04/19/20 12:13 04/19/20 12:13 04/19/20 12:13 04/19/20 12:13 Interpretation: Normal - General General appearance: Appears well, Alert - HEENT Head: Normocephalic, Atraumatic Eyes: Normal Pupils: PERRL - Respiratory Respiratory status: No respiratory distress Chest status: Nontender Breath sounds: Normal Chest palpation: Normal - Cardiovascular Rhythm: Regular Heart sounds: Normal auscultation Murmur: No - Abdominal Inspection: Normal Distension: No distension Bowel sounds: Normal Tenderness: Nontender Organomegaly: No organomegaly - Back Back: Normal, Nontender - Extremities General upper extremity: Normal inspection, Nontender, Normal color, Normal ROM, Normal temperature General lower extremity: Normal temperature. No: Sabi's sign Foot: Tender, Ecchymosis, Edema, Metatarsal compress. pain, No evidence of FB, Unable to bear weight - Neurological Neuro grossly intact: Yes Cognition: Normal Orientation: AAOx4 [place] Coma Scale Eye Opening: Spontaneous [place] Coma Scale Verbal: Oriented Nelly Coma Scale Motor: Obeys Commands [place] Coma Scale Total: 15 Speech: Normal Motor strength normal: LUE, RUE, LLE, RLE Sensory: Normal - Psychological Associated symptoms: Normal affect, Normal mood - Skin Skin Temperature: Warm Skin Moisture: Dry Skin Color: Normal, Ecchymosis - Left foot second and third toe Skin Turgor: Edematous Course - Vital Signs Vital signs: Temp Pulse Resp BP Pulse Ox 98.5 F 98 16 133/71 H 100 04/19/20 12:13 04/19/20 12:13 04/19/20 12:13 04/19/20 12:13 04/19/20 12:13 - Diagnostic Test Radiology reviewed: Image reviewed, Reports reviewed Procedures - Immobilization Left Foot Time completed: 13:57 Pre-Proc Neuro Vasc Exam: Normal Immobilizer type: Crutches, Post-op shoe Performed by: PATRICIA Post-Proc Neuro Vasc Exam: Normal Alignment checked and good: Yes Discharge - Discharge Clinical Impression: Intra-articular fracture second toe left Condition: Stable Disposition: HOME, SELF-CARE Additional Instructions: Fractured Toe You have an intra-articular at fracture of the proximal base of the second toe on the left foot according to x-ray. Although this fracture doesn't need a cast or splint, emergency evaluation was needed to assess the straightness of the bones and joints. Reduction ("setting") is necessary for toe fractures which are crooked or twisted. A toe fracture will heal in about three weeks. Usually, this fracture needs a postop shoe and crutches and you need to follow-up with orthopedics. You may need crutches at first if walking is painful. When you begin walking, be careful NOT to do things that hurt. If weight bearing is not comfortable within a few days, you may require a special shoe, walking boot, or cast. These call orthopedics tomorrow to schedule a follow-up appointment this is an intra-articular which means he goes to the joint and needs to be followed up with orthopedics Post-Op Shoe You are to use a "post-op shoe," sometimes also called a "bunnion shoe." This shoe helps protect minor fractures, sprains, and other injuries of the toes or foot. You may remove the shoe for bathing. Walk carefully. If you're feeling p ain, put less weight on the foot, take smaller steps, or use a cane. If you have a new injury, you may need to use crutches for the first couple of days. If pain still prevents walking after a few days, contact the doctor. If there's unexpected pain in your foot, if blisters or sore spots develop, or if the shoe is physically coming apart, return at once. Remember that you're welcome to come in at any time to have the fit of the shoe checked and adjusted. USE OF CRUTCHES: The doctor has recommended that you not bear weight at this time. You will need to use crutches. Adjust the crutches so the tops come to about two inches under the armpit while you are standing upright. Use your hands -- not your armpits -- to support your weight. To get into a chair, support yourself with one crutch on the injured side. Hold the chair with the other hand, then lower yourself while putting all your weight on the good leg. Going up stairs is `good leg up, step up, then bring up crutches and bad leg.' Down stairs is `bad leg and crutches down, then bring good leg down.' If you develop numbness or swelling in an arm or hand, you are using the crutches incorrectly. Return if you are having any problems with the crutches. ICE & ELEVATION: Apply ice packs frequently against the painful area. Many different schedules are recommended, such as "20 minutes on, 20 minutes off" or "one hour ice, two hours rest." If you need to work, you may need to go longer between ice treatments. You should plan to have the area ice packed AT LEAST one-fourth of the time. The ice should be applied over the wrap, tape, or splint, or over a layer of cloth -- not directly against the skin. Some ice bags have a built-in cloth and can be put directly on the skin. Your injured part should be elevated as much as possible over the next 48 hours. Try to keep the injury above the level of the heart. Avoid use of the injured area. Elevation and rest will decrease the swelling. USE OF QSYT-SHH-ZIPUTCP IBUPROFEN: Ibuprofen (Advil, Nuprin, Medipren, Motrin IB) is a medication for fever and pain control. In addition, it has anti- inflammatory effects which may be beneficial, especially in the treatment of injuries. It's best to take ibuprofen with food. Persons with ulcer disease or allergy to aspirin should notify their physician of this before taking ibuprofen. Ibuprofen can be given every four to six hours, for a total of four doses daily. Age Pain or fever dose Antiinflammatory dose 6-8 yr 200 mg (1 tab) 200 mg (1 tab) 9-11 yr 200 mg (1 tab) 200-400 mg (1-2 tab) 11-14 yr 200-400 mg (1-2 tab) 400 mg (2 tab) 15-adult 400 mg (2 tab) 600 mg (3 tab) You are on chronic pain management with chronic pain medicines. Use ibuprofen also to help with the pain in your foot. Elevation and ice will also help the pain. FOLLOW-UP CARE: If you have been referred to a physician for follow-up care, call the physicians office for an appointment as you were instructed or within the next two days. If you experience worsening or a significant change in your symptoms, notify the physician immediately or return to the Emergency Department at any time for re-evaluation. Referrals: CELESTINO ORONA PA-C [Primary Care Provider] - Follow up as needed MASON COLLINS MD [ACTIVE STAFF] - Follow up as needed [facility] [Provider Group] - Follow up as needed
--- NOTE | 2020-04-19 13:27 | RADIOLOGY REPORT (SQ) ---
EXAM DESCRIPTION: FOOT LEFT COMPLETE IMAGES COMPLETED DATE/TIME: 04/19/2020 11:44 am REASON FOR STUDY: pain swelling eccymosis 2 3 toe and metatarsal COMPARISON: None. NUMBER OF VIEWS: Three views. TECHNIQUE: AP, lateral and oblique radiographic images acquired of the left foot. LIMITATIONS: None. FINDINGS: MINERALIZATION: Normal. BONES: There is an acute intra-articular corner fracture at the proximal base 2nd digit proximal phal anx. Mild medial displacement of the fracture fragment. Moderate osteoarthritis at the midfoot with small marginal osteophytes. Small plantar calcaneal spur. JOINTS: No effusions. SOFT TISSUES: Diffuse subcutaneous edema at the forefoot. No foreign body. OTHER: No other significant finding. IMPRESSION: 1. Acute intra-articular corner fracture proximal base 2nd digit proximal phalanx. TECHNICAL DOCUMENTATION: JOB ID: [id number] 2010 [employer]- All Rights Reserved Reading location - IP/workstation name: [email or web address]
== END 2020-04-19 13:57 | disposition home or self-care (01) ==
LOC: ER 11:41
DX: S92.512A Displaced fracture of proximal phalanx of left lesser toe(s), initial encounter for closed fracture (principal); W54.1XXA Struck by dog, initial encounter; Y92.009 Unspecified place in unspecified non-institutional (private) residence as the place of occurrence of the external cause; I10 Essential (primary) hypertension; F17.210 Nicotine dependence, cigarettes, uncomplicated; Z71.6 Tobacco abuse counseling; Z79.899 Other long term (current) drug therapy; Z79.891 Long term (current) use of opiate analgesic; Z91.048 Other nonmedicinal substance allergy status
CPT/HCPCS: 99283; 73630; A9270

== ENCOUNTER → 2020-05-07 | Outpatient (CLI) | payer MEDICARE ==
--- NOTE | 2020-05-07 15:14 | RADIOLOGY REPORT (SQ) ---
EXAM DESCRIPTION: CT CHEST WITHOUT IMAGES COMPLETED DATE/TIME: 05/07/2020 12:52 pm REASON FOR STUDY: (R91.8)OTHER NONSPECIFIC ABNORMAL FINDING OF LUNG FIELD R91.8 OTHER NONSPECIFIC A BNORMAL FINDING OF LUNG FIELD COMPARISON: 10/04/2019 TECHNIQUE: CT scan performed of the chest without intravenous contrast. Images reviewed with lung, soft tissue and bone windows. Reconstructed coronal and sagittal MPR images reviewed. All images st ored on PACS. All CT scanners at this facility use dose modulation, iterative reconstruction, and/or weight based d osing when appropriate to reduce radiation dose to as low as reasonably achievable (ALARA). [facility]: Dose Right [facility]: CareDose [facility]: Dose Right [facility]: Teradose 4D [facility]: [employer] RADIATION DOSE: CT Rad equipment meets quality standard of care and radiation dose reduction techniq ues were employed. CTDIvol: 4.8 mGy. DLP: 181 mGy-cm. mGy. LIMITATIONS: No technical limitations. FINDINGS: LUNGS AND PLEURA: Centrilobular emphysema particularly in the upper lobes. 6 mm nodule in the right lower lobe is once again seen on image 90 series 4. Stable. 6 mm nodule in the lingula o n image 92 is stable. Pleural/parenchymal scarring in the right costophrenic angle. HILAR AND MEDIASTINAL STRUCTURES: No identified masses or abnormal nodes. No obvious aneurysm. HEART AND VASCULAR STRUCTURES: No aneurysm. No pericardial effusion. UPPER ABDOMEN: No significant findings. Limited exam. THYROID AND OTHER SOFT TISSUES: No masses. No adenopathy. BONES: No significant finding. HARDWARE: Neurostimulator electrodes in the thoracic spine. OTHER: No other significant findings. IMPRESSION: Pulmonary emphysema. Stable small pulmonary nodules. Pleural/ parenchymal scarring in the right costophrenic angle. COMMENT: FLEISCHNER CRITERIA FOR FOLLOW-UP OF PULMONARY NODULES Incidentally detected new nodules in persons 35 or older. HIGH RISK: History of smoking or other known risk factors. 6-8 mm multiple solid nodules: LOW RISK: CT 3-6 mo; then consider CT 18-24 mo. HIGH RISK: CT 3-6 mo; then CT 18-24 mo. TECHNICAL DOCUMENTATION: JOB ID: [id number] Quality ID # [id number]: Final reports with documentation of one or more dose reduction techniques (e.g., Au tomated exposure control, adjustment of the mA and/or kV according to patient size, use of iterative reconstruction technique) 2010 [employer]- All Rights Reserved Reading location - IP/workstation name: [email or web address]
== END ==
LOC: RAD 12:41
PROVIDERS: ATTEND Registered Nurse
DX: J43.2 Centrilobular emphysema (principal); R91.8 Other nonspecific abnormal finding of lung field
CPT/HCPCS: 71250